=== PATIENT | male | born 1935 | race Caucasian/White ===

== ENCOUNTER 2023-09-17 19:39 | Inpatient (IN) | payer MEDICARE, BC, SELFPAY ==
[2023-09-17] VITALS (8 sets, daily range): BP systolic 132–195; BP diastolic 61–88; PULSE 86–100; RESP 16–18; TEMP 36.8–37.1; O2SAT 92–99; BMI 24.6
--- NOTE | 2023-09-17 19:57 | DI.RAD.S_ITS ---
PROCEDURE: XR HIP W PEL IF DONE LT 2V INDICATIONS: slip in shower, L hip pain TECHNIQUE: AP pelvis with lateral view(s) of the left hip(s). COMPARISON: None. FINDINGS: Bones: Left hip appears foreshortened. There is subtle irregularity at the intertrochanteric femoral neck. No dislocations. Pelvic ring appears intact. No suspicious bony lesions. Soft tissues: The visualized bowel gas pattern is normal. No suspicious soft tissue calcifications. IMPRESSION: Suspect left hip fracture. Foreshortened appearance with irregularity at the intertrochanteric femoral neck. Dictated by: Fabrizio Maravilla M.D. on 09/17/2023 at 20:54 Approved by: Fabrizio Maravilla M.D. on 09/17/2023 at 20:57
--- NOTE | 2023-09-17 20:00 | DI.RAD.S_ITS ---
PROCEDURE: XR CHEST 1V INDICATIONS: pre-op TECHNIQUE: One view of the chest was acquired. COMPARISON: None. FINDINGS: Surgical changes and devices: None. Lungs and pleura: Lungs are clear. No pleural effusions or pneumothorax. Mediastinum: Mediastinal contours appear normal. Heart size is normal. Bones and chest wall: No suspicious bony lesions. Overlying soft tissues appear unremarkable. IMPRESSION: No acute cardiopulmonary abnormality is seen. Dictated by: Fabrizio Maravilla M.D. on 09/17/2023 at 20:57 Approved by: Fabrizio Maravilla M.D. on 09/17/2023 at 20:58
--- NOTE | 2023-09-17 20:27 | ED.LOWEXIN ---
HPI - Extremity Injury (Lower) General Chief Complaint: Extremity Injury, Upper Stated Complaint: lt hip Fx issues Time Seen by Provider: 09/17/23 19:57 Source: patient Mode of arrival: Wheelchair History of Present Illness HPI Narrative: 88-year-old male presents with left hip pain. Patient was in the shower when he slipped, landing on his left hip. He denies any other injuries at this time. Takes 2 daily baby aspirins, denies use of other blood thinners. Able to bear a very small amount of weight on his left hip, but unable to ambulate due to pain Related Data Home Medications Medication Instructions Recorded Confirmed aspirin 81 mg tablet 81 mg PO BID 09/17/23 09/17/23 atorvastatin 20 mg tablet 20 mg PO BEDTIME 09/17/23 09/17/23 cyanocobalamin (vitamin B-12) 5,000 mcg PO DAILY 09/17/23 09/17/23 5,000 mcg sublingual tablet (Vitamin B-12) gabapentin 100 mg capsule 100 mg PO QID 09/17/23 09/17/23 hydrochlorothiazide 12.5 mg capsule 12.5 mg PO QAM 09/17/23 09/17/23 multivit with minerals-iron 18 1 tab PO DAILY 09/17/23 09/17/23 mg-folic ac 400 mcg-vit K 25 mcg tablet (Adults Multivitamin) Allergies Allergy/AdvReac Type Severity Reaction Status Date / Time No Known Drug Allergies Allergy Verified 09/17/23 19:52 Patient History Medical History (Updated 09/18/23 @ 02:46 by Audelia Starkey MD) TIA (transient ischemic attack) HLD (hyperlipidemia) HTN (hypertension) Nephrolithiasis Surgical History H/O Spinal surgery H/O cystoscopy Hx of inguinal hernia surgery Social History household members: spouse Smoking Status: Never smoker alcohol intake: current Exam Initial Vital Signs Initial Vital Signs: Vital Signs Temperature 98.3 F 09/17/23 19:48 Pulse Rate 95 H 09/17/23 19:48 Respiratory Rate 18 09/17/23 19:48 Blood Pressure 158/73 H 09/17/23 19:48 Pulse Oximetry 98 09/17/23 19:48 Oxygen Delivery Method Room Air 09/17/23 19:48 Const: Awake, alert, no acute distress, nontoxic appearing Cardiac: regular rate, regular rhythm RESP: unlabored, clear bilaterally, no wheezing GI: Soft, nontender, nondistended MSK: No reproducible tenderness to palpation, pain with range of motion, no shortening Skin: Warm, Dry, intact, no rashes Neuro: AO x3, CN II-XII grossly intact, moves all extremities Course Orders Ordered: ED Orders 09/17/23 19:57 XR hip w pel if done LT 2V Stat 09/17/23 20:00 XR chest 1V Stat 09/17/23 20:15 PT [Prothrombin Time INR] Stat 09/17/23 20:19 CBC Auto Diff [Complete Blood Count AUTO DIFF] Stat CMP [Comprehensive Metabolic Panel] Stat 09/17/23 21:02 CT pelvis wo con Stat EKG-12 Lead Stat 09/17/23 21:20 Type and Screen Stat 09/17/23 21:46 Consult to Orthopedic Surgery Stat Acetaminophen (Acetaminophen 325 Mg Tablet) 650 mg PO TID [facility] Last Admin: 09/17/23 23:02 Dose: 650 mg Documented By: RETA Atorvastatin Calcium (Atorvastatin 20 Mg Tablet) 20 mg PO BEDTIME [facility] Bisacodyl (Bisacodyl 10 Mg Supp) 10 mg HI DAILY PRN PRN Reason: Constipation Docusate Sodium (Docusate 100 Mg Capsule) 100 mg PO BID СЕРГЕЙ Gabapentin (Gabapentin 100 Mg Capsule) 100 mg PO QID [facility] Last Admin: 09/17/23 23:02 Dose: 100 mg Documented By: RETA Gabapentin (Gabapentin 100 Mg Capsule) 100 mg PO QID [facility] Hydromorphone HCl (Hydromorphone 0.5 Mg Inj) 0.5 mg IV Q4H PRN PRN Reason: Pain, Severe (7-10) Lactated Ringer's (Lactated Ringers) 1,000 mls @ 100 mls/hr IV CONT [facility] Stop: 09/18/23 07:59 Last Admin: 09/17/23 22:42 Dose: 100 mls/hr Documented By: RETA Naloxone HCl (Naloxone 0.4 Mg/Ml Vial) 0.2 mg IV Q2MIN PRN PRN Reason: Opiate Reversal Ondansetron HCl (Ondansetron 4 Mg/2 Ml Inj) 4 mg IV Q8HR PRN PRN Reason: Nausea And Vomiting Ondansetron HCl (Ondansetron 4 Mg Odt) 4 mg PO Q8HR PRN PRN Reason: Nausea And Vomiting Oxycodone HCl (Oxycodone Ir 5 Mg Tablet) 5 mg PO Q4HR PRN PRN Reason: Pain, Moderate (4-6) Sennosides (Sennosides 8.6 Mg Tablet) 17.2 mg PO BEDTIME СЕРГЕЙ Discontinued Medications Morphine Sulfate (Morphine 4 Mg/Ml Inj) 4 mg IV NOW ONE Stop: 09/17/23 20:29 Last Admin: 09/17/23 20:42 Dose: 4 mg Documented By: DELON Vital Signs Vital signs: Vital Signs - 8 hr 09/17/23 19:48 09/17/23 19:58 09/17/23 19:58 Temperature 98.3 F Pulse Rate 95 H 96 H Respiratory Rate 18 16 Blood Pressure 158/73 H 195/88 H Pulse Oximetry 98 97 Oxygen Delivery Method Room Air Room Air 09/17/23 20:00 09/17/23 20:00 09/17/23 20:22 Temperature Pulse Rate 100 H 93 H Respiratory Rate Blood Pressure 182/72 H Pulse Oximetry 99 97 Oxygen Delivery Method 09/17/23 20:22 09/17/23 20:30 09/17/23 20:30 Temperature Pulse Rate 93 H Respiratory Rate Blood Pressure 150/70 H 149/72 H Pulse Oximetry 97 Oxygen Delivery Method 09/17/23 21:00 09/17/23 21:00 09/17/23 21:22 Temperature Pulse Rate 93 H 86 Respiratory Rate Blood Pressure 146/67 H Pulse Oximetry 92 96 Oxygen Delivery Method Room Air 09/17/23 21:22 Temperature Pulse Rate Respiratory Rate Blood Pressure 132/61 Pulse Oximetry Oxygen Delivery Method MDM - Extremity Injury (Lower) Differential Diagnosis Differential diagnosis: Likely acute internal derangement of knee, fracture of femur and fracture of hip Lab Data 09/17/23 20:19 09/17/23 20:19 Labs: Lab Results 09/17/23 09/17/23 09/17/23 Range/Units 20:15 20:19 21:20 WBC 10.9 (4.5-11.0) X10^3/uL RBC 4.16 L (4.5-5.9) X10^6/uL Hgb 14.2 (13.5-17.5) g/dL Hct 41.1 (41-53) % MCV 98.6 (80-100) fL MCH 34.1 H (26-34) PG MCHC 34.6 (30-36) % RDW 13.1 (11.6-14.8) % Plt Count 169 (150-400) X10^3/uL Neut % (Auto) 73.5 (50-75) % Lymph % (Auto) 16.2 L (25-40) % Ross % (Auto) 9.3 (3-14) % Eos % (Auto) 0.5 L (2-4) % Baso % (Auto) 0.5 (0-2) % Neut # (Auto) 8000 H (8710-5377) /uL Lymph # (Auto) 1800 (6458-2496) /uL Ross # (Auto) 1000 H (0-900) /uL Eos # (Auto) 100 (0-450) /uL Baso # (Auto) 100 (0-100) /uL PT 11.8 (9.4-12.5) SECONDS INR 1.0 (0.9-1.3) Sodium 130 L (137-145) mmol/L Potassium 3.8 (3.4-5.1) mmol/L Chloride 98 (98-107) mmol/L Carbon Dioxide 24 (22-32) mmol/L BUN 27 H (9-20) mg/dL Creatinine 0.99 (0.66-1.25) mg/dL Estimated GFR > 60 (>60) mL/min BUN/Creatinine Ratio 27.3 H (6-22) Glucose 149 H (80-110) mg/dL Calcium 10.7 H (8.4-10.2) mg/dL Total Bilirubin 0.9 (0.2-1.3) mg/dL AST 39 (17-59) IU/L ALT 26 (<50) IU/L Alkaline Phosphatase 71 (38-126) U/L Total Protein 7.2 (6.3-8.2) g/dL Albumin 4.0 (3.5-5.0) g/dL Globulin 3.2 (1.7-4.1) g/dL Albumin/Globulin Ratio 1.3 (1.0-2.8) Blood Type A Positive Antibody Screen Negative Imaging Data CT scan - abdomen/pelvis: Radiologist's Impression: PROCEDURE: CT PEL WO CON INDICATIONS: PROBABLE L HIP FX, BETTER ASSESSMENT TECHNIQUE: After the administration of oral contrast, 5 mm thick sections acquired from the iliac crests to the symphysis. 5 mm coronal and sagittal reformats were then performed. For radiation dose reduction, the following was used: automated exposure control, adjustment of mA and/or kV according to patient size. COMPARISON: [facility], CR, XR HIP W PEL IF DONE LT 2V, 09/17/2023, 20:02. FINDINGS: Image quality: Diagnostic. PELVIS: Peritoneum and Bowel: Bowel loops demonstrate normal wall thickness and caliber. No free fluid or air. Pelvic Organs: No pelvic mass. Bladder: Small stone in the right bladder measuring 0.5 cm, (2/37). Pelvic Nodes: No enlarged lymph nodes. Miscellaneous: No inguinal hernias are seen. Small low-density renal cysts. Small nonobstructing right kidney stones. No hydroureter seen. Bones: No aggressive osseous abnormality. Left hip intertrochanteric fracture. Minimal displacement. L3 Schmorl's node or mild compression fracture. Multilevel DDD. IMPRESSION: 1. Left hip intertrochanteric fracture. 2. Small stone in the urinary bladder. No hydroureter is seen. Small additional kidney stones. Dictated by: Fabrizio Maravilla M.D. on 09/17/2023 at 22:09 Approved by: Fabrizio Maravilla M.D. on 09/17/2023 at 22:16 MDM Narrative Medical decision making narrative: Ground level fall with hip pain, suspect fracture. While laying in bed patient's pain relatively well controlled. X-ray shows suspected left hip fracture. CT ordered for further assessment and if ortho needs for preop planning. Laboratory work reviewed, no significant abnormalities identified. Patient informed of diagnosis and recommended admission for surgical fixation. Patient in agreement Discharge Plan Departure Patient Disposition: Admitted As Inpatient Clinical Impression: Fall in (into) shower or empty bathtub, initial encounter, Injury while showering Fracture of hip, left, closed Qualifiers: Encounter type: initial encounter Qualified Code(s): S72.002A - Fracture of unspecified part of neck of left femur, initial encounter for closed fracture Admit Date/Time: 09/17/23 21:46 Admit Provider: Yi Asencio
[2023-09-17] MEDS: MORPHINE 4 MG/ML INJ IV (20:42)
[2023-09-17 20:43] LABS: Alanine Aminotransferase 26 IU/L (<50); Albumin Globulin Ratio 1.3 (1.0-2.8); Alkaline Phosphatase 71 U/L (38-126); Aspartate Aminotransferase 39 IU/L (17-59); BUN Creatinine Ratio 27.3 (6-22); Bilirubin Total 0.9 mg/dL (0.2-1.3); Blood Urea Nitrogen 27 mg/dL (9-20); Calcium 10.7 mg/dL (8.4-10.2); Carbon Dioxide 24 mmol/L (22-32); Chloride 98 mmol/L (98-107); Estimated Glomerular Filt Rate > 60 mL/min (>60); Globulin 3.2 g/dL (1.7-4.1); Glucose 149 mg/dL (80-110); HEMOLYSIS 33 (0-50); Potassium 3.8 mmol/L (3.4-5.1); Sodium 130 mmol/L (137-145); Total Protein 7.2 g/dL (6.3-8.2)
[2023-09-17 20:45] LABS: Add Manual Diff / Slide Review NO; Basophils Absolute Auto 100 /uL (0-100); Basophils Percent Auto 0.5 % (0-2); Eosinophils Absolute Auto 100 /uL (0-450); Eosinophils Percent Auto 0.5 % (2-4); Hematocrit 41.1 % (41-53); Hemoglobin 14.2 g/dL (13.5-17.5); Lymphocytes Absolute Auto 1800 /uL (1100-4500); Lymphocytes Percent Auto 16.2 % (25-40); Mean Corpuscular HGB Conc 34.6 % (30-36); Mean Corpuscular Hemoglobin 34.1 PG (26-34); Mean Corpuscular Volume 98.6 fL (80-100); Monocytes Absolute Auto 1000 /uL (0-900); Monocytes Percent Auto 9.3 % (3-14); Neutrophils Absolute Auto 8000 /uL (1500-7000); Neutrophils Percent Auto 73.5 % (50-75); Platelet Count 169 X10^3/uL (150-400); Red Blood Cell Count 4.16 X10^6/uL (4.5-5.9); Red Cell Distribution Width 13.1 % (11.6-14.8); White Blood Cell Count 10.9 X10^3/uL (4.5-11.0)
--- NOTE | 2023-09-17 21:02 | DI.CT.S_ITS ---
PROCEDURE: CT PEL WO CON INDICATIONS: PROBABLE L HIP FX, BETTER ASSESSMENT TECHNIQUE: After the administration of oral contrast, 5 mm thick sections acquired from the iliac crests to the symphysis. 5 mm coronal and sagittal reformats were then performed. For radiation dose reduction, the following was used: automated exposure control, adjustment of mA and/or kV according to patient size. COMPARISON: [facility], CR, XR HIP W PEL IF DONE LT 2V, 09/17/2023, 20:02. FINDINGS: Image quality: Diagnostic. PELVIS: Peritoneum and Bowel: Bowel loops demonstrate normal wall thickness and caliber. No free fluid or air. Pelvic Organs: No pelvic mass. Bladder: Small stone in the right bladder measuring 0.5 cm, (2/37). Pelvic Nodes: No enlarged lymph nodes. Miscellaneous: No inguinal hernias are seen. Small low-density renal cysts. Small nonobstructing right kidney stones. No hydroureter seen. Bones: No aggressive osseous abnormality. Left hip intertrochanteric fracture. Minimal displacement. L3 Schmorl's node or mild compression fracture. Multilevel DDD. IMPRESSION: 1. Left hip intertrochanteric fracture. 2. Small stone in the urinary bladder. No hydroureter is seen. Small additional kidney stones. Dictated by: Fabrizio Maravilla M.D. on 09/17/2023 at 22:09 Approved by: Fabrizio Maravilla M.D. on 09/17/2023 at 22:16
--- NOTE | 2023-09-17 21:02 | EKG_ITS ---
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
[2023-09-17 21:17] LABS: Prothrombin Time 11.8 SECONDS (9.4-12.5)
--- NOTE | 2023-09-17 21:31 | PC.NURSE ---
type and screen drawn, blood band placed
--- NOTE | 2023-09-17 22:11 | P.HP_ITS ---
History of Present Illness History of Present Illness Date Patient Seen: 09/17/23 Time Patient Seen: 23:00 Date of Onset of Symptoms: 09/17/23 Chief complaint: Left hip pain, fall Narrative: Discussed admission with Dr. Starkey States that he traveled from [facility] to [facility], due to water issues at location went to [place] to shower and slipped on soap falling on Left hip at 14.30. He was down for about 30 mins, was assisted up as not able to bear weight, and [place] to [place]. Prior to fall was at baseline health. Denies head trauma or other injury. Denies any other complaints. Desires to discuss surgical options with Surgeon; prefers to be at large facility and would like to considering transfer options with Hospitalist in am. ED course: 4mg IV x1 ED consulted zoning assistant Orthopedic surgeon [facility] Medical History TIA (transient ischemic attack) HLD (hyperlipidemia) HTN (hypertension) Nephrolithiasis Surgical History H/O Spinal surgery H/O cystoscopy Hx of inguinal hernia surgery Meds Home Medications and Allergies Home Medications Medication Instructions Recorded Confirmed Type aspirin 81 mg tablet 81 mg PO BID 09/17/23 09/17/23 History atorvastatin 20 mg tablet 20 mg PO BEDTIME 09/17/23 09/17/23 History cyanocobalamin (vitamin B-12) 5,000 mcg PO DAILY 09/17/23 09/17/23 History 5,000 mcg sublingual tablet (Vitamin B-12) gabapentin 100 mg capsule 100 mg PO QID 09/17/23 09/17/23 History hydrochlorothiazide 12.5 mg capsule 12.5 mg PO QAM 09/17/23 09/17/23 History multivit with minerals-iron 18 1 tab PO DAILY 09/17/23 09/17/23 History mg-folic ac 400 mcg-vit K 25 mcg tablet (Adults Multivitamin) Allergies Allergy/AdvReac Type Severity Reaction Status Date / Time No Known Drug Allergies Allergy Verified 09/17/23 19:52 Review of Systems Review of Systems ROS: Yes All systems reviewed with the patient and are negative except as otherwise documented Exam Vital Signs (past 8 hours): - 09/17/23 19:48 09/17/23 19:58 09/17/23 19:58 Temperature 98.3 F Pulse Rate 95 H 96 H Respiratory Rate 18 16 Blood Pressure 158/73 H 195/88 H Pulse Oximetry 98 97 Oxygen Delivery Method Room Air Room Air 09/17/23 20:00 09/17/23 20:00 09/17/23 20:22 Temperature Pulse Rate 100 H 93 H Respiratory Rate Blood Pressure 182/72 H Pulse Oximetry 99 97 Oxygen Delivery Method 09/17/23 20:22 09/17/23 20:30 09/17/23 20:30 Temperature Pulse Rate 93 H Respiratory Rate Blood Pressure 150/70 H 149/72 H Pulse Oximetry 97 Oxygen Delivery Method 09/17/23 21:00 09/17/23 21:00 09/17/23 21:22 Temperature Pulse Rate 93 H 86 Respiratory Rate Blood Pressure 146/67 H Pulse Oximetry 92 96 Oxygen Delivery Method Room Air 09/17/23 21:22 Temperature Pulse Rate Respiratory Rate Blood Pressure 132/61 Pulse Oximetry Oxygen Delivery Method Oxygen Delivery Method Room Air Narrative Exam Narrative: Patient consented and evaluated via telemedicine with audio and visual with nurse at bedside. Const General: healthy appearing Orientation: alert and oriented x3 Other: NAD HENMT Head: normocephalic Mouth: oral mucosae normal Eyes General: appearance normal, both eyes and all related structures EOM: EOM intact bilaterally Neck Neck: normal visual inspection Chest Chest: normal inspection of the chest Resp Effort & Inspection: normal respiratory effort Cardio Rate: regular rate Rhythm: regular rhythm GI Inspection: normal to inspection Auscultation: normal bowel sounds Other: NTTP Skin General: no rashes or lesions noted Neuro General: patient alert and patient oriented x3 Extrem Other: LLE limited ROM due to pain Psych Affect: normal affect Objective ECG Impression: NSR, no significant contiguous ST changes, no previous to compare Imaging XR Left Hip: My impression: Left femoral neck intertrochanteric fracture Radiologist's impression: PROCEDURE: XR HIP W PEL IF DONE LT 2V INDICATIONS: slip in shower, L hip pain TECHNIQUE: AP pelvis with lateral view(s) of the left hip(s). COMPARISON: None. FINDINGS: Bones: Left hip appears foreshortened. There is subtle irregularity at the intertrochanteric femoral neck. No dislocations. Pelvic ring appears intact. No suspicious bony lesions. Soft tissues: The visualized bowel gas pattern is normal. No suspicious soft tissue calcifications. IMPRESSION: Suspect left hip fracture. Foreshortened appearance with irregularity at the intertrochanteric femoral neck. Dictated by: Fabrizio Maravilla M.D. on 09/17/2023 at 20:54 Approved by: Fabrizio Maravilla M.D. on 09/17/2023 at 20:57 CT scan - pelvis: My impression: Left femoral neck intertrochanteric fracture Radiologist's impression: [address] [id number] [address] Scan Report Signed Patient: Jackson Cutler MR#: [id number] : 1935 Acct:[id number] Age/Sex: 88 / M Date of Service: 09/17/23 Loc: 205-1 Accession Number: [id number] Procedure: CT pelvis wo con Ordering Provider: Audelia Starkey MD PROCEDURE: CT PEL WO CON INDICATIONS: PROBABLE L HIP FX, BETTER ASSESSMENT TECHNIQUE: After the administration of oral contrast, 5 mm thick sections acquired from the iliac crests to the symphysis. 5 mm coronal and sagittal reformats were then performed. For radiation dose reduction, the following was used: automated exposure control, adjustment of mA and/or kV according to patient size. COMPARISON: [facility], CR, XR HIP W PEL IF DONE LT 2V, 09/17/2023, 20:02. FINDINGS: Image quality: Diagnostic. PELVIS: Peritoneum and Bowel: Bowel loops demonstrate normal wall thickness and caliber. No free fluid or air. Pelvic Organs: No pelvic mass. Bladder: Small stone in the right bladder measuring 0.5 cm, (2/37). Pelvic Nodes: No enlarged lymph nodes. Miscellaneous: No inguinal hernias are seen. Small low-density renal cysts. Small nonobstructing right kidney stones. No hydroureter seen. Bones: No aggressive osseous abnormality. Left hip intertrochanteric fracture. Minimal displacement. L3 Schmorl's node or mild compression fracture. Multilevel DDD. IMPRESSION: 1. Left hip intertrochanteric fracture. 2. Small stone in the urinary bladder. No hydroureter is seen. Small additional kidney stones. Dictated by: Fabrizio Maravilla M.D. on 09/17/2023 at 22:09 Approved by: Fabrizio Maravilla M.D. on 09/17/2023 at 22:16 Chest x-ray: My impression: NAP Radiologist's impression: PROCEDURE: XR CHEST 1V INDICATIONS: pre-op TECHNIQUE: One view of the chest was acquired. COMPARISON: None. FINDINGS: Surgical changes and devices: None. Lungs and pleura: Lungs are clear. No pleural effusions or pneumothorax. Mediastinum: Mediastinal contours appear normal. Heart size is normal. Bones and chest wall: No suspicious bony lesions. Overlying soft tissues appear unremarkable. IMPRESSION: No acute cardiopulmonary abnormality is seen. Dictated by: Fabrizio Maravilla M.D. on 09/17/2023 at 20:57 Approved by: Fabrizio Maravilla M.D. on 09/17/2023 at 20:58 Labs 09/17/23 20:19 09/17/23 20:19 Labs: Laboratory Results - last 24 hr 09/17/23 09/17/23 20:15 20:19 WBC 10.9 RBC 4.16 L Hgb 14.2 Hct 41.1 MCV 98.6 MCH 34.1 H MCHC 34.6 RDW 13.1 Plt Count 169 Neut % (Auto) 73.5 Lymph % (Auto) 16.2 L Wilson % (Auto) 9.3 Eos % (Auto) 0.5 L Baso % (Auto) 0.5 Neut # (Auto) 8000 H Lymph # (Auto) 1800 Wilson # (Auto) 1000 H Eos # (Auto) 100 Baso # (Auto) 100 PT 11.8 INR 1.0 Sodium 130 L Potassium 3.8 Chloride 98 Carbon Dioxide 24 BUN 27 H Creatinine 0.99 Estimated GFR > 60 BUN/Creatinine Ratio 27.3 H Glucose 149 H Calcium 10.7 H Total Bilirubin 0.9 AST 39 ALT 26 Alkaline Phosphatase 71 Total Protein 7.2 Albumin 4.0 Globulin 3.2 Albumin/Globulin Ratio 1.3 Assessment & Plan Assessment and plan (1) Fracture of hip, left, closed: Problem details: Traumatic Qualifiers: Encounter type: initial encounter Qualified Code(s): S72.002A - Fracture of unspecified part of neck of left femur, initial encounter for closed fracture Status: Acute Plan: XR, CT with acute fracture order caller Orthopedic surgeon consulted by ED, plan admit to medicine, will discuss with oncoming team in am for scheduling of surgical intervention 09/17 Pain management with bowel regimen Surgical cardiac risk without risk factors, RCRI Class 1 3.9%, no further work up indicated INR 1 Type and cross pending DNR/DNI would like to discuss operative Code status with surgeon PT/OT NPO p MN (2) Hyponatremia: Status: Acute Plan: Mild, suspect hypovolemic, start IV fluids with LR, serial monitoring (3) Nephrolithiasis: Status: Acute Plan: Nephrolithiasis and urinary calculi on CT without obstructive process Follow up with PCP Assessment & Plan narrative: Chronic conditions: HTN, hold HCTZ 12.5mg (unsure of dose) for fluid administration as above, pain management and if BP uncontrolled, 180/110 will initiate prn HLD, continue home statin therapy atorvastatin 20mg History of TIA 2005, hold home antiplatelet ASA 81mg BID History of Spinal surgery with neuropathy, continue home Gabapentin History of bilateral inguinal hernia surgery Time-Based Coding :: [TOTAL MINUTES] spent with patient and on the chart (including review of chart, obtaining history, exam, reviewing outside data, placing orders, documenting exam and treatment plan, and counseling patient) on [DATE].
[2023-09-17] MEDS: LACTATED RINGERS 1,000 ML 100 ML IV (22:42)
[2023-09-17] MEDS: GABAPENTIN 100 MG CAPSULE PO (23:02)
[2023-09-17] MEDS: ACETAMINOPHEN 325 MG TABLET 650 MG PO (23:02)
[2023-09-18] VITALS (21 sets, daily range): BP systolic 118–189; BP diastolic 63–91; PULSE 84–110; RESP 8–17; TEMP 36.2–37.1; O2SAT 90–100; BMI 26.2
[2023-09-18 06:47] LABS: Add Manual Diff / Slide Review NO; Basophils Absolute Auto 0 /uL (0-100); Basophils Percent Auto 0.6 % (0-2); Eosinophils Absolute Auto 200 /uL (0-450); Hematocrit 40.7 % (41-53); Hemoglobin 13.9 g/dL (13.5-17.5); Lymphocytes Absolute Auto 1400 /uL (1100-4500); Lymphocytes Percent Auto 17.1 % (25-40); Mean Corpuscular HGB Conc 34.2 % (30-36); Mean Corpuscular Hemoglobin 33.6 PG (26-34); Mean Corpuscular Volume 98.5 fL (80-100); Monocytes Absolute Auto 1000 /uL (0-900); Monocytes Percent Auto 12.7 % (3-14); Neutrophils Absolute Auto 5400 /uL (1500-7000); Neutrophils Percent Auto 67.6 % (50-75); Platelet Count 164 X10^3/uL (150-400); Red Blood Cell Count 4.14 X10^6/uL (4.5-5.9); Red Cell Distribution Width 13.3 % (11.6-14.8); White Blood Cell Count 7.9 X10^3/uL (4.5-11.0)
[2023-09-18 07:06] LABS: BUN Creatinine Ratio 22.4 (6-22); Blood Urea Nitrogen 19 mg/dL (9-20); Calcium 10.1 mg/dL (8.4-10.2); Carbon Dioxide 24 mmol/L (22-32); Chloride 98 mmol/L (98-107); Estimated Glomerular Filt Rate > 60 mL/min (>60); Glucose 95 mg/dL (80-110); HEMOLYSIS < 15 (0-50); Potassium 3.6 mmol/L (3.4-5.1); Sodium 131 mmol/L (137-145)
--- NOTE | 2023-09-18 07:25 | PT-IP ANOTE ---
PT order received. Pt adm after fall and left hip fracture. No surgery done at this point. Will d/c PT order and await new orders post-op to include any precautions and WB.
--- NOTE | 2023-09-18 07:29 | PM.PN.1 ---
Subjective Subjective Interval history: From night doctor: States that he traveled from [facility] to [facility], due to water issues at location went to [place] to shower and slipped on soap falling on Left hip at 14.30. He was down for about 30 mins, was assisted up as not able to bear weight, and transported on ferry to [place]. Prior to fall was at baseline health. Denies head trauma or other injury. Denies any other complaints. Desires to discuss surgical options with Surgeon; prefers to be at large facility and would like to considering transfer options with Hospitalist in am. ED course: 4mg IV x1 ED consulted land acquisition analyst Orthopedic surgeon S: Doing well, the pain is manageable. No chest pain or dyspnea. He does have aortic stenosis. Exam Vital Signs (past 8 hours): - 09/18/23 03:19 Temperature 98.5 F Pulse Rate 86 Respiratory Rate 14 Blood Pressure 143/69 H Pulse Oximetry 96 Oxygen Flow Rate 0 Oxygen Delivery Method Room Air Oxygen Flow Rate 0 Narrative Exam Narrative: NAD, alert and oriented. Fluent speech. Lungs are clear, normal rate and effort. Heart is regular, 3/6 systolic murmur and no gallop or rub. Abdomen is soft, non distended. Extremities are free of edema. Objective Imaging L Hip X-ray:: Radiologist's impression: Suspect left hip fracture. Foreshortened appearance with irregularity at the intertrochanteric femoral neck. L hip CT: : Radiologist's impression: 1. Left hip intertrochanteric fracture. 2. Small stone in the urinary bladder. No hydroureter is seen. Small additional kidney stones. Labs 09/18/23 06:35 09/18/23 06:35 Labs: Laboratory Results - last 24 hr 09/17/23 09/17/23 09/17/23 20:15 20:19 21:20 WBC 10.9 RBC 4.16 L Hgb 14.2 Hct 41.1 MCV 98.6 MCH 34.1 H MCHC 34.6 RDW 13.1 Plt Count 169 Neut % (Auto) 73.5 Lymph % (Auto) 16.2 L Camden % (Auto) 9.3 Eos % (Auto) 0.5 L Baso % (Auto) 0.5 Neut # (Auto) 8000 H Lymph # (Auto) 1800 Camden # (Auto) 1000 H Eos # (Auto) 100 Baso # (Auto) 100 PT 11.8 INR 1.0 Sodium 130 L Potassium 3.8 Chloride 98 Carbon Dioxide 24 BUN 27 H Creatinine 0.99 Estimated GFR > 60 BUN/Creatinine Ratio 27.3 H Glucose 149 H Calcium 10.7 H Total Bilirubin 0.9 AST 39 ALT 26 Alkaline Phosphatase 71 Total Protein 7.2 Albumin 4.0 Globulin 3.2 Albumin/Globulin Ratio 1.3 Blood Type A Positive Antibody Screen Negative 09/18/23 06:35 WBC 7.9 RBC 4.14 L Hgb 13.9 Hct 40.7 L MCV 98.5 MCH 33.6 MCHC 34.2 RDW 13.3 Plt Count 164 Neut % (Auto) 67.6 Lymph % (Auto) 17.1 L Camden % (Auto) 12.7 Eos % (Auto) 2.0 Baso % (Auto) 0.6 Neut # (Auto) 5400 Lymph # (Auto) 1400 Camden # (Auto) 1000 H Eos # (Auto) 200 Baso # (Auto) 0 PT INR Sodium 131 L Potassium 3.6 Chloride 98 Carbon Dioxide 24 BUN 19 Creatinine 0.85 Estimated GFR > 60 BUN/Creatinine Ratio 22.4 H Glucose 95 Calcium 10.1 Total Bilirubin AST ALT Alkaline Phosphatase Total Protein Albumin Globulin Albumin/Globulin Ratio Blood Type Antibody Screen [facility] Medical History TIA (transient ischemic attack) HLD (hyperlipidemia) HTN (hypertension) Nephrolithiasis Surgical History H/O Spinal surgery H/O cystoscopy Hx of inguinal hernia surgery Social History household members: spouse Smoking Status: Never smoker alcohol intake: current Assessment & Plan Assessment & Plan narrative: 1. Left hip intertrochanteric fracture, present on admission and active. 2. Hyponatremia, present on admission and active. 3. Nephrolithiasis, present on admission and active. 4. Moderate Aortic stenosis, present on admission and active. Chronic medical conditions: HTN, hold HCTZ 12.5mg (unsure of dose) for fluid administration as above, pain management and if BP uncontrolled, 180/110 will initiate prn HLD, continue home statin therapy atorvastatin 20mg History of TIA 2005, hold home antiplatelet ASA 81mg BID History of Spinal surgery with neuropathy, continue home Gabapentin History of bilateral inguinal hernia surgery PLAN: -operative repair hip fracture today. -aortic stenosis, monitor carefully. Admitted to inpatient status, expected 2 nights stay. Full resuscitation. Time-Based Coding :: 30 min spent with patient and on the chart (including review of chart, obtaining history, exam, reviewing outside data, placing orders, documenting exam and treatment plan, and counseling patient) on 09/17.
--- NOTE | 2023-09-18 08:07 | OT.IPNOTE ---
OT eval and treat order received. Chart reviewed, pt with fall and L hip fx. Awaiting sx vs transfer to another hospital per chart. Will discharge order at this time and await new order after sx.
[2023-09-18] MEDS: ACETAMINOPHEN 325 MG TABLET 650 MG PO (08:41)
[2023-09-18] MEDS: DOCUSATE 100 MG CAPSULE PO ×2 (08:41→20:08)
[2023-09-18] MEDS: GABAPENTIN 100 MG CAPSULE PO ×2 (08:41→20:08)
[2023-09-18] MEDS: LACTATED RINGERS 1,000 ML 84 ML IV ×2 (08:58→16:33)
[2023-09-18] MEDS: OXYCODONE IR 5 MG TABLET PO (09:03)
--- NOTE | 2023-09-18 11:49 | CM.DANOTE ---
Patient is an 88 yo male who was admitted INPT Status on 09/17/23 for GLF with L hip Fx. Pt has Marana MCR ADV for insurance and his PCP is in [place]. EMR was reviewed. Per , pt with GLF and left hip fx and hypercalcemia and awaiting Ortho Consult to confirm surgery today. Per Rn, pt on the Ortho surgery schedule for 1500 today. SW met bedside with pt and spouse Tatiana and explained role and they confirm their permanent address is in [place] but for the past 30 yrs they come to their summer home on [facility] and stay for a few months in the summer. Pt confirms that he is typically independent with mobility and ADLS and still drives and is very A&O. Pt states that his has early Alzheimers and is getting bi monthly infusions for medications for that in [place] and their next trip back to [place] is already set up for Oct 07 at the end of the month and spouse typically able to manage most of her ADLs still but has been a little more confused in this new environment. Pt has no hx of SNF or HH and discussed the process of PT/OT in the morning after his later afternoon surgery today to determine HH vs SNF. Pt confirms that they do not plan to d/c back to [facility] right at d/c and would be local hotel together if safe for d/c with HH vs SNF and spouse staying at hotel nearby. Preference if SNF needed is [facility] due to location. SW made new referral to [facility] and requested they review and determine if they can take pt's Marana MCR otherwise pt aware that SW would need to reach out to [facility] and Sandra Fraser in [facility]. Plan: SW to follow closely for [facility] review of pt's insurance and then PT/OT eval tomorrow to determine discharge planning needs of SNF vs local hotel with HH. NIKA Murguia Discharge Planning/Care Management Advanced directive, confirm from FAMILY Start: 09/17/23 22:48 Freq: Q24H Status: Active Protocol: Document 09/17/23 22:48 BR (Rec: 09/17/23 23:30 BR [id number]) Advance Directive, confirm on record Time 23:30 Person contacted spouse Copy received No CM Discharge Assessment Start: 09/18/23 11:45 Freq: Status: Active Protocol: Document 09/18/23 11:45 BF (Rec: 09/18/23 11:49 BF [id number]) Discharge Planning Assessment Assigned Chief Medical Technologist NIKA Stevens DPOA/Assigned Designee Name spouse Tatiana Contact Information [phone] Advance Directives? Yes: copies at home in [place] Advance Directives on File No History Provided By Patient,Significant Other, Medical Record Has Patient been admitted in last 30 No days? Prior Living Arrangements House Comment has stairs at home on [place], none at home in [place] Household Members spouse Type of transporation used prior to Drives own vehicle admit Independent with ADL's Yes Is patient alert and oriented? Yes Caregiver for Another Yes: spouse with early Alzeheimers Patient/Family Preference Shelter Facility,Home with Home Health Comment SNF vs HH pending surgery and then PT/OT eval Barriers to Discharge No Discharge Plan Shelter Facility Community Services Physical Therapy,Occupational Therapy Transportation Arrangement spouse able to transport locally Referrals Initiated Shelter,Home Health Additional Comment Pending surgery and then PT/OT eval and recommendations Medicare Choice List Provided Yes Medicare choice list reviewed on patient,family electronic tablet with Has Agency SNF been contacted Yes Comment [facility] reviewing to see if contracted with Justin Merrill Updated in Patient Room with Yes name and ext. # of Chief Medical Technologist Review Status In Process Please Provide Date Initial DC 09/18/23 Assessment Was Performed Next Review Type Continued Stay Review
--- NOTE | 2023-09-18 14:26 | P.CONS_ITS ---
History of Present Illness Consult details Date Patient Seen: 09/18/23 Time Patient Seen: 14:27 Chief complaint: Left hip pain, fall Reason for consult: Hip fracture, left Requesting provider: Mina Nunn Narrative: The patient is an 88-year-old male that is visiting from [place]. Typically spends the adam up on [facility]. This year they were to only spent the month of September. They just arrived and found something wrong with the plugging of the cabin [place] at which point he slipped in the shower and fell onto his left side sustained immediate pain and was unable to ambulate or put pressure on the left lower extremity. 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 He is remote history of a microdiskectomy. And he sees a neurologist. Typically ambulates without assistive devices but states his walking is ?not great?. Denies any head injury or injury to other body part. No personal or family history of blood clots. He has had a TIA and takes aspirin. His is with him at bedside today. Denies any prior hip pain He was brought to [facility] by EMS. He was found to have a hip fracture. This was prescribed by the radiologist as an intertrochanteric hip fracture however on review it appears to be a vertical femoral neck fracture and therefore my partner Dr. Nunn has asked me to take a look at it for treatment as we would recommend with an unstable femoral neck variant fracture arthroplasty over internal fixation. Meds Home Medications and Allergies Home Medications Medication Instructions Recorded Confirmed Type aspirin 81 mg tablet 81 mg PO BID 09/17/23 09/17/23 History atorvastatin 20 mg tablet 20 mg PO BEDTIME 09/17/23 09/17/23 History cyanocobalamin (vitamin B-12) 5,000 mcg PO DAILY 09/17/23 09/17/23 History 5,000 mcg sublingual tablet (Vitamin B-12) gabapentin 100 mg capsule 100 mg PO QID 09/17/23 09/17/23 History hydrochlorothiazide 12.5 mg capsule 12.5 mg PO QAM 09/17/23 09/17/23 History multivit with minerals-iron 18 1 tab PO DAILY 09/17/23 09/17/23 History mg-folic ac 400 mcg-vit K 25 mcg tablet (Adults Multivitamin) Allergies Allergy/AdvReac Type Severity Reaction Status Date / Time No Known Drug Allergies Allergy Verified 09/18/23 14:13 Review of Systems Review of Systems Narrative: History of some numbness left lower extremity greater than right, sequelae of remote spine surgery ROS: Yes All systems reviewed with the patient and are negative except as otherwise documented Exam Vital Signs (past 8 hours): - 09/18/23 08:00 09/18/23 12:00 Temperature 98.2 F 98.8 F Pulse Rate 95 H 89 Respiratory Rate 16 17 Blood Pressure 132/72 118/66 Pulse Oximetry 97 96 Oxygen Flow Rate 0 0 Oxygen Delivery Method Room Air Oxygen Flow Rate 0 Narrative Exam Narrative: Alert oriented male in no acute distress lying in the hospital bed. at bedside. HEENT exam normocephalic atraumatic Moving bilateral upper extremities without limitation Heart regular rate and rhythm Lungs clear to auscultation Speaking clearly Left lower extremity slightly externally rotated benign-appearing knee. Tenderness around the left hip. Remainder of motor examination on left side deferred due to known hip fracture. Demonstrates active dorsiflexion plantar flexion of the left ankle. Palpable dorsalis pedis pulse. Calf is soft. Right lower extremity is benign 5/5 dorsiflexion plantar flexion. Knee without effusion. Objective Imaging AP pelvis left lateral hip x-ray: My impression: Left proximal femur fracture, shortened CT scan left hip and pelvis: My impression: Vertical femoral neck fracture, displaced Radiologist's impression: Reading radiologist called this an intertrochanteric fracture. However I had a radiologist look over it with me now who agrees vertical pattern femoral neck fracture. Labs 09/18/23 06:35 09/18/23 06:35 Labs: Laboratory Results - last 24 hr 09/17/23 09/17/23 09/17/23 20:15 20:19 21:20 WBC 10.9 RBC 4.16 L Hgb 14.2 Hct 41.1 MCV 98.6 MCH 34.1 H MCHC 34.6 RDW 13.1 Plt Count 169 Neut % (Auto) 73.5 Lymph % (Auto) 16.2 L [place] % (Auto) 9.3 Eos % (Auto) 0.5 L Baso % (Auto) 0.5 Neut # (Auto) 8000 H Lymph # (Auto) 1800 [place] # (Auto) 1000 H Eos # (Auto) 100 Baso # (Auto) 100 PT 11.8 INR 1.0 Sodium 130 L Potassium 3.8 Chloride 98 Carbon Dioxide 24 BUN 27 H Creatinine 0.99 Estimated GFR > 60 BUN/Creatinine Ratio 27.3 H Glucose 149 H Calcium 10.7 H Total Bilirubin 0.9 AST 39 ALT 26 Alkaline Phosphatase 71 Total Protein 7.2 Albumin 4.0 Globulin 3.2 Albumin/Globulin Ratio 1.3 Blood Type A Positive Antibody Screen Negative 09/18/23 06:35 WBC 7.9 RBC 4.14 L Hgb 13.9 Hct 40.7 L MCV 98.5 MCH 33.6 MCHC 34.2 RDW 13.3 Plt Count 164 Neut % (Auto) 67.6 Lymph % (Auto) 17.1 L [place] % (Auto) 12.7 Eos % (Auto) 2.0 Baso % (Auto) 0.6 Neut # (Auto) 5400 Lymph # (Auto) 1400 [place] # (Auto) 1000 H Eos # (Auto) 200 Baso # (Auto) 0 PT INR Sodium 131 L Potassium 3.6 Chloride 98 Carbon Dioxide 24 BUN 19 Creatinine 0.85 Estimated GFR > 60 BUN/Creatinine Ratio 22.4 H Glucose 95 Calcium 10.1 Total Bilirubin AST ALT Alkaline Phosphatase Total Protein Albumin Globulin Albumin/Globulin Ratio Blood Type Antibody Screen [facility] Medical History TIA (transient ischemic attack) HLD (hyperlipidemia) HTN (hypertension) Nephrolithiasis Surgical History H/O Spinal surgery H/O cystoscopy Hx of inguinal hernia surgery Social History marital status: household members: spouse Tobacco & Substance Use Smoking Status: Never smoker alcohol intake: current Assessment & Plan Assessment and plan (1) Fracture of hip, left, closed: Problem details: Traumatic Qualifiers: Encounter type: initial encounter Qualified Code(s): S72.002A - Fracture of unspecified part of neck of left femur, initial encounter for closed fracture Status: Acute Plan Displaced vertical pattern femoral neck fracture. Unstable fracture and a area of the femoral neck with poor blood supply and concern for healing. Recommend hemiarthroplasty, partial replacement hip surgery for predictable immediate weight-bearing given this unstable fracture with poor potential for healing and blood supply. We discussed the risks and benefits of surgery. We discussed hip fracture repair with partial hip replacement is designed to allow immediate weight-bearing and help reduce the risks of prolonged immobility. The risks and benefits of the procedure have been discussed with the patient and given the opportunity to ask questions. The risks of surgery include but are not limited to infection, fracture, persistence of pain, damage to nerves and blood vessels, posttraumatic arthritis, leg length discrepancy, DVT, PE, cardiopulmonary complications and . The patient expressed a thorough understanding of the risks and benefits of surgery and has elected to proceed. Consent was signed. We discussed with the treatment for displaced hip fracture in almost all patients except for those with very short life expectancy is surgical in order to promote mobilization, pain relief and function. We discussed use of assistive device after surgery. DVT prophylaxis postop will be Lovenox unless mobilizing well at which point this can be adjusted to aspirin 81 mg b.i.d.. High-level medical decision-making decision for surgery. Major orthopedic surgery with partial hip replacement for left hip fracture. This patient will need inpatient admission and social work assistance as he will not be able to return [place]. He has plans to fly back home to [place] on October 07. Time-Based Coding :: >60spent with patient and on the chart (including review of chart, obtaining history, exam, reviewing outside data, placing orders, documenting exam and treatment plan, and counseling patient) on [DATE].
[2023-09-18] MEDS: LACTATED RINGERS 1,000 ML 42 ML IV (14:36)
--- NOTE | 2023-09-18 14:37 | P.OP_ITS ---
Operative Date/Time/Diagnoses Date of procedure: 09/18/23 Time of procedure: 15:37 Pre-op diagnosis: Left hip fracture, femoral neck, displaced Post-op diagnosis: same Procedure & Clinicians Procedure: Hemiarthroplasty for repair of left femoral neck fracture CPT code 09644 Same procedure as scheduled: Yes Indications: The patient is an 88-year-old did have a ground level fall and sustained a displaced left hip fracture. He was indicated for a partial hip replacement for his displaced left hip fracture. The risks and benefits of the procedure have been discussed with the patient and given the opportunity to ask questions. The risks of surgery include but are not limited to infection, fracture, persistence of pain, damage to nerves and blood vessels, posttraumatic arthritis,, leg length discrepancy, dislocation, DVT, PE, cardiopulmonary complications and . The patient expressed a thorough understanding of the risks and benefits of surgery and has elected to proceed. Consent was signed Surgeon: Alexandra Marroquin Air Export Logistics Manager: Bulmaro Campos Anesthesia Type: General and Local Operative Notes Findings: Displaced vertical femoral neck fracture left Closure Type: primary Specimen(s): none sent Prosthetic devices, grafts, tissues, transplants, or devices: [employer] Synergy cemented tobi arthroplasty, Synergy stem cobalt chromium size 13, tandem unipolar head size 49mm +4 neck, 10 mm centralizer medium restrictor Estimated Blood Loss (mL): 250 Blood products transfused: none Tourniquet time (min): 0 Procedure in detail: During the operation, the services of a physician manager surgical were medically indicated and necessary to provide the exposure of the operative site for the surgical procedure and to maintain the limb in a proper position to carry out the operation safely and efficiently. Without a qualified residential living assistant being present this would extended the operative procedure and made the procedure technically more difficult to perform. Hemiarthroplasty for femoral neck fracture CPT code 62164. Patient was seen in the preoperative area the site of surgery was marked and informed consent confirmed. This was the left hip. The patient was brought back to the operating room by the anesthesia team. Patient was positioned supine on the operative table. General anesthetic was administered. Patient was then moved into the lateral position. The hip library technician positioner pads were then placed. A well-padded axillary roll was placed and the arms were appropriately positioned. The affected lower extremity was prepped and draped from the ankle to the iliac crest with ChloraPrep in the standard fashion sterile drapes were placed. Formal time-out procedure was performed confirming the patient's side and site of surgery, presence of informed consent, administration of appropriate preoperative antibiotics. Hip was approached through a standard posterior approach. Dissection was carried down through the skin and subcutaneous tissues sharply through the skin and then with the Bovie through the subcutaneous tissues. The fascia erwin was exposed and opened. Fascia was opened using the Bovie and the gluteus ida was spread with finger retraction. The Charnley retractor was placed. The inflamed bursa was resected. The piriformis was then identified. A Cobra retractor was placed under the gluteus medius to help expose the external rotators. Aquamantys was used for hemostasis. The piriformis and short external rotators were tagged with a 2 Ethibond and divided of the trochanter. These were then retracted posteriorly to protect sciatic nerve. The femur was then flexed and internally rotated to present the femoral neck and the fracture. A corkscrew and a Medina were used to remove the femoral head from the acetabulum. This was measured to fit a 49 mm head. Next the femur was presented. A clean-up neck cut was made in a minimal fashion. The trial head size was trialed in the acetabulum. Attention was then turned to the femur. The canal was opened with a box cutting osteotome. This followed by the canal finer and a lateralizing Reamer. The tapered reamers were then used up to a size 13 mm. Then broaching was sequentially done up to a size 13 mm. Trial components were placed. The patient was stable in the position of sleep, squatting and could be put through a range of motion with 70? of internal rotation without dislocation. This was felt to be appropriate. An intraop a AP pelvis x-ray was obtained to assess component position. Final components were then selected. The final stem was a size 13 mm. Femoral canal was prepared . The distal small restrictor was placed approximately 1 cm distal to the end of the planned implant. The bone was meticulously cleaned with pulse lavage. Canal was then packed with gauze. Two packages of cement were mixed and carefully pressurized into the femoral canal. The femoral component was then placed without difficulty. This was held in place until the cement hardened. The repeat trial reduction showed good range of motion and stability. The final head and neck were then carefully placed. The wound was irrigated. The capsule and muscular flap was repaired with the 2. Ethibond. Next the short external rotators were repaired to the greater trochanter through drill holes in the greater trochanter using the 2.5 drill and a [employer] suture Passer. These were tied with the leg in abduction. The wound was then irrigated again. The fascia erwin was closed with 0 Vicryl and the subcutaneous layer was closed with 2-0 Vicryl, 4-0 Monocryl and the skin with riley. Local anesthetic with 266 mg Exparel and bupivacaine was used for local anesthetic. A denton dressing was placed as the patient was felt to be a little oozy.. A pillow was placed for abduction protection. The drapes removed and the patient was taken to the recovery room in good condition. There no immediate complications from this procedure. All counts were correct. Postoperative AP pelvis x-ray was obtained in the PACU showed appropriate alignment of the cemented hip hemiarthroplasty with no evidence of fracture. Complications: none Post-operative Condition: stable Disposition: PACU Plan for aftercare: Weightbear as tolerated. Use assistive devices. Work with physical therapy and occupational therapy. We will use 40 mg of Lovenox subcutaneous daily x4 weeks for DVT prophylaxis unless mobilizing well then can be converted to 81 mg of aspirin b.i.d. instead. Posterior hip precautions x6 weeks. Denton dressing will work for 1 week and then battery we will stop working and the hose and battery pack can be removed. The dressing can stay in place until wound check in 2 weeks.. Riley remain in place 2 weeks. Follow up in orthopedic clinic for wound check in 2 weeks.
[2023-09-18] MEDS: CEFAZOLIN 2 GM/100 ML PREMIX 100 ML IV ×2 (15:17→23:02)
[2023-09-18] MEDS: TRANEXAMIC ACID 1,000 MG in SODIUM CHLORIDE 0.9% 100 ML 200 MG IV ×2 (15:20→17:09)
--- NOTE | 2023-09-18 15:41 | SUR.OPER ---
Lateral on padded OR bed. Gel axillary roll. Arms secured on padded armboard with pillow supporting top arm. Padded hip positioner braces x4 - anterior and posterior chest and pelvis. Additional gel pad used anterior pelvis. Gel pad under bottom leg from knee to foot and secured with tape over sheet.
[2023-09-18] MEDS: ACETAMINOPHEN IV 1,000 MG/100 ML VIAL 400 MG IV (15:56)
[2023-09-18] MEDS: BUPIVACAINE LIPOSOME 266 MG/20 ML VIAL INJ (16:02)
[2023-09-18] MEDS: BUPIVACAINE 0.25% (PF) 60 ML, EPINEPHrine 0.15 MG INJ (16:02)
[2023-09-18] MEDS: EPINEPHrine 1 MG/ML IRR (16:05)
--- NOTE | 2023-09-18 16:27 | DI.RAD.S_ITS ---
PROCEDURE: XR PELVIS 1-2V INDICATIONS: INNER OP TECHNIQUE: Intra-operative view of the pelvis and hip acquired. COMPARISON: None. FINDINGS: Bones: Intraoperative devices prior to placement of arthroplasty prostheses are in expected positions. No fractures or suspicious bony lesions. Soft tissues: Overlying surgical retractors are present, along with other intraoperative changes. IMPRESSION: Intraoperative appearance during left hip arthroplasty. Dictated by: Eden Gilliland M.D. on 09/18/2023 at 17:13 Approved by: Eden Gilliland M.D. on 09/18/2023 at 17:13
--- NOTE | 2023-09-18 17:30 | DI.RAD.S_ITS ---
PROCEDURE: XR PELVIS 1-2V INDICATIONS: POST OP UMER ARTHROPLASTY TECHNIQUE: 1 view(s) of the pelvis acquired. COMPARISON: [facility], CR, XR PELVIS 1-2V, 09/18/2023, 16:11. FINDINGS: Bones: Left hip hemiarthroplasty changes. Lumbosacral degenerative changes. Soft tissues: Postoperative changes IMPRESSION: Left hip hemiarthroplasty postoperative changes. Dictated by: Luis Fernando Arndt M.D. on 09/19/2023 at 8:35 Approved by: Luis Fernando Arndt M.D. on 09/19/2023 at 8:36
[2023-09-18] MEDS: LABETALOL 20 MG/4 ML SYRINGE 5 MG IV (18:34)
[2023-09-18 19:29] LABS: Add Manual Diff / Slide Review NO; Basophils Absolute Auto 0 /uL (0-100); Basophils Percent Auto 0.2 % (0-2); Eosinophils Absolute Auto 0 /uL (0-450); Eosinophils Percent Auto 0.1 % (2-4); Hematocrit 38.6 % (41-53); Hemoglobin 13.1 g/dL (13.5-17.5); Lymphocytes Absolute Auto 500 /uL (1100-4500); Lymphocytes Percent Auto 4.3 % (25-40); Mean Corpuscular Hemoglobin 33.6 PG (26-34); Mean Corpuscular Volume 98.8 fL (80-100); Monocytes Absolute Auto 300 /uL (0-900); Monocytes Percent Auto 2.7 % (3-14); Neutrophils Absolute Auto 10300 /uL (1500-7000); Neutrophils Percent Auto 92.7 % (50-75); Platelet Count 148 X10^3/uL (150-400); Red Blood Cell Count 3.91 X10^6/uL (4.5-5.9); Red Cell Distribution Width 13.3 % (11.6-14.8); White Blood Cell Count 11.2 X10^3/uL (4.5-11.0)
[2023-09-18] MEDS: SENNOSIDES 8.6 MG TABLET 17.2 MG PO (20:07)
[2023-09-18] MEDS: LACTATED RINGERS 1,000 ML 100 ML IV (20:07)
[2023-09-18] MEDS: ATORVASTATIN 20 MG TABLET PO (20:08)
[2023-09-18] MEDS: ONDANSETRON 4 MG/2 ML INJ IV (22:57)
[2023-09-19 06:00] VITALS: BP 122/63; PULSE 94; RESP 16; TEMP 36.8; O2SAT 96
[2023-09-19] MEDS: THYROID, PORK 30 MG TABLET 60 MG PO (06:34)
[2023-09-19 06:51] LABS: Hematocrit 33.7 % (41-53); Hemoglobin 11.6 g/dL (13.5-17.5); Mean Corpuscular HGB Conc 34.4 % (30-36); Mean Corpuscular Hemoglobin 33.6 PG (26-34); Mean Corpuscular Volume 97.7 fL (80-100); Platelet Count 151 X10^3/uL (150-400); Red Blood Cell Count 3.45 X10^6/uL (4.5-5.9); Red Cell Distribution Width 12.8 % (11.6-14.8); White Blood Cell Count 11.1 X10^3/uL (4.5-11.0)
[2023-09-19 07:18] LABS: BUN Creatinine Ratio 24.1 (6-22); Blood Urea Nitrogen 19 mg/dL (9-20); Calcium 9.5 mg/dL (8.4-10.2); Carbon Dioxide 25 mmol/L (22-32); Chloride 97 mmol/L (98-107); Estimated Glomerular Filt Rate > 60 mL/min (>60); Glucose 137 mg/dL (80-110); HEMOLYSIS < 15 (0-50); Potassium 4.4 mmol/L (3.4-5.1); Sodium 126 mmol/L (137-145)
--- NOTE | 2023-09-19 07:23 | PM.PN.1 ---
Subjective Subjective Interval history: Summary: This is a pleasant 88-year-old gentleman who slipped and had a subsequent fracture of his left hip. He underwent ORIF on September 17. This was uncomplicated. Subjective: Great pain control, ambulated with occupational therapy. No chest pain, or shortness a breath. Exam Vital Signs (past 8 hours): - 09/18/23 23:28 09/19/23 06:00 Temperature 97.4 F L 98.2 F Pulse Rate 85 94 H Respiratory Rate 17 16 Blood Pressure 143/75 H 122/63 Pulse Oximetry 97 96 Oxygen Flow Rate 0 Fraction of Inspired Oxygen 28 SaO2/FiO2 Ratio 339 Oxygen Delivery Method Nasal Cannula Oxygen Flow Rate 0 Narrative Exam Narrative: NAD, alert and oriented. Fluent speech. Lungs are clear, normal rate and effort. Heart is regular, 3/6 systolic murmur and nogallop or rub. Abdomen is soft, non distended. Extremities are free of edema. Objective Labs 09/19/23 06:28 09/19/23 06:28 Labs: Laboratory Results - last 24 hr 09/18/23 09/19/23 19:23 06:28 WBC 11.2 H 11.1 H RBC 3.91 L 3.45 L Hgb 13.1 L 11.6 L Hct 38.6 L 33.7 L MCV 98.8 97.7 MCH 33.6 33.6 MCHC 34.0 34.4 RDW 13.3 12.8 Plt Count 148 L 151 Neut % (Auto) 92.7 H D Lymph % (Auto) 4.3 L [place] % (Auto) 2.7 L Eos % (Auto) 0.1 L Baso % (Auto) 0.2 Neut # (Auto) 73012 H Lymph # (Auto) 500 L [place] # (Auto) 300 Eos # (Auto) 0 Baso # (Auto) 0 Sodium 126 L Potassium 4.4 Chloride 97 L Carbon Dioxide 25 BUN 19 Creatinine 0.79 Estimated GFR > 60 BUN/Creatinine Ratio 24.1 H Glucose 137 H Calcium 9.5 PFSH Medical History Aortic stenosis TIA (transient ischemic attack) HLD (hyperlipidemia) HTN (hypertension) Nephrolithiasis Surgical History H/O Spinal surgery H/O cystoscopy Hx of inguinal hernia surgery Social History marital status: household members: spouse Smoking Status: Never smoker alcohol intake: current Assessment & Plan Assessment & Plan narrative: 1. Left hip intertrochanteric fracture, present on admission and active. 2. Hyponatremia, present on admission and active. 3. Nephrolithiasis, present on admission and active. 4. Moderate Aortic stenosis, present on admission and active. Chronic medical conditions: HTN, hold HCTZ 12.5mg HLD, continue home statin therapy atorvastatin 20mg History of TIA 2005, ASA 81mg BID History of Spinal surgery with neuropathy, continue home Gabapentin History of bilateral inguinal hernia surgery PLAN: -hold hydrochlorothiazide for hyponatremia, urine sodium. Monitor q.12 hours. -analgesia for hip fracture. -DVT prophylaxis with Lovenox 40 daily. -monitor hemoglobin. -monitor breathing status with aortic stenosis, he has propensity for fluid retention. -resume ASA 81 daily DNR SAMUEL is September 19, we will need [facility] facility transition for rehabilitation. Time-Based Coding :: 25 min spent with patient and on the chart (including review of chart, obtaining history, exam, reviewing outside data, placing orders, documenting exam and treatment plan, and counseling patient) on 09/18.
[2023-09-19 08:00] VITALS: BP 123/59; PULSE 93; RESP 16; TEMP 37.4; O2SAT 96
--- NOTE | 2023-09-19 09:05 | PT.IIE ---
Current Diagnoses Hypo-osmolality and hyponatremia (09/17/23) Calculus of kidney (09/17/23) Fracture of unspecified part of neck of left femur, initial encounter for closed fracture (09/17/23) Surgery Performed Operation Date: 09/18/23 15:15 Actual Procedures p Left Hip Hemiarthroplasty (Cemented Unipolar)(Left) - Alexandra Marroquin MD Surgical History (Last Reviewed 09/19/23 @ 07:24 by Ernesto Mistry MD) H/O cystoscopy H/O Spinal surgery Hx of inguinal hernia surgery Medical History (Last Reviewed 09/19/23 @ 07:24 by Ernesto Mistry MD) Aortic stenosis HLD (hyperlipidemia) HTN (hypertension) Nephrolithiasis TIA (transient ischemic attack) Physical Therapy Inpatient Evaluation/Re-Eval M1 PT/OT-IP Prior Functional Status Start: 09/18/23 07:24 Freq: NEEDED Status: Active Protocol: Document 09/19/23 09:05 AB (Rec: 09/19/23 12:53 AB [id number]) Medical Review Prior Functional Status Medical History Reviewed Yes Communication able to make needs known Mobility and Gait pt stated that he was independent with all mobilities and ambulation without AD Social History Household Members spouse Living Arrangements House Number of Stairs To Enter/Railing? pt plans to go to a motel Additional Social History Comment pt stated that spouse has Alzheimer's dse and will not be able to assist him much pt lives between [place] and [facility] but currently, the house in [facility] does not have water and pt will not be going back there. pt stated that they might go to a motel for now M2 PT-IP Current Condition Start: 09/18/23 07:24 Freq: NEEDED Status: Active Protocol: Document 09/19/23 09:05 AB (Rec: 09/19/23 12:53 AB [id number]) Physical Therapy Current Condition Current Condition Evaluation Date 09/19/23 Treatment Diagnosis L hip fx s/p L hip hemiarthroplasty; difficulty in walking Onset Date 09/17/23 M3 PT-IP Subjective Start: 09/18/23 07:24 Freq: NEEDED Status: Active Protocol: Document 09/19/23 09:05 AB (Rec: 09/19/23 12:53 AB [id number]) Subjective Physical Therapy Visit Type Type Initial Evaluation Visit Start Time 09:05 Visit Stop Time 09:55 Number of SALES SERVICE COORDINATOR Visits 0 Physical Therapy Visit Comments Patient Comments agreeable to do PT Therapy Pain Assessment Pain When Pain Assessed During Mobility Pain Present Pain Present Pain Reported Location Left Hip Intensity 2 Scale Used Numeric (0 - 10) Pain Management Techniques Distraction,Modification of Treatment,Re-positioning, Timing of Activity with Medications M4 PT-IP Mobility and Gait Start: 09/18/23 07:24 Freq: NEEDED Status: Active Protocol: Document 09/19/23 09:05 AB (Rec: 09/19/23 12:53 AB [id number]) PT-Bed Mobility Assessment Supine to Sit Supine to Sit Maximum Assistance,Head of Bed Elevated Sit to Supine Sit to Supine Standby Assistance PT-Transfer Assessment Sit to and From Stand Sit to and from Stand Maximum Assistance,1 Person Assistance,Use of Upper Extremities Equipment Transfer Assistive Device Gait Belt,Front Wheeled Walker Orthotic/Prosthetic Devices or Brace: No Transfers Transfer Destination Bed,Chair Transfer Technique ambulated Transfer Ability Level of Assist Moderate Assistance,1 Person Assistance,Use of Upper Extremities Comments Mobility Comments pt sitting on the chair and agreeable to do PT. obtained PLOF and home set up from pt. post-op folder provided and reviewed contents. pt's spouse arrived. educated pt and spouse regarding pt's posterior L hip precautions. pt requires cues to recall. pt completed sit to stand from chair max A and max cues for precautions and techniques. pt ambulated in room using FWW ~ 30 ft mod A and cues with ( +) L knee buckling x 2 requiring mod A for recovery. pt sat on EOB. completed sit to supine SBA with cues for hip precautions. pt completed supine to sit max A and max cues. pt tends to cross LLE over midline and twist to get up and reminded of precautions . pt completed sit to stand from EOB max A and cues. required 3 attempts to get up. pt completed step transfer to chair mod A and cues using FWW. positioned pt on the chair. call light and table placed within reach. informed pt regarding SNF rehab and pt does not want to go to SNF due to pt worried about leaving spouse alone. Gait Assessment Gait Gait Assistance Required: Moderate Assistance,1 Person Assist Distance (Feet) 30 Able to Maintain Weight Bearing Status Yes During Gait Assistive Devices Assistive Device Gait Belt,Front Wheeled Walker Orthotic/Prosthetic Devices or Brace: No Gait Deviations General Gait Pattern Antalgic,Ataxic,Decreased Stride Length,Decreased Feet Clearance Factors Limiting Gait Function Factors Limiting Gait Function Decreased Activity Tolerance, Decreased Strength,Difficulty Following Directions,Limited Range of Motion,Pain,Poor Balance,Poor Safety Awareness PT-Balance Assessment Sitting Balance and Reactions Static Sitting Balance Ability Good Dynamic Sitting Balance Ability Fair Standing Balance and Reactions Static Standing Balance Ability Fair Dynamic Standing Balance Ability Poor Device Used FWW M5 PT-IP Objective Assessments Start: 09/18/23 07:24 Freq: NEEDED Status: Active Protocol: Document 09/19/23 09:05 AB (Rec: 09/19/23 12:53 AB [id number]) Orientation Orientation/Cognition Level of Alertness Alert Orientation Name,Place,Situation Safety Awareness Decreased Safety Awareness Memory Description Short Term Impaired,Registered Nurse Float Pool Impaired Gross Range of Motion Lower Extremity ROM Assessment Within Functional Limits Strength Lower Extremity Strength Assessment Bilaterally Impaired Comments Strength Comments RLE: 4-/5 LLE: 3-/5 Sensation Assessment Sensation Gross Sensation WNL Muscle Tone Muscle Tone WNL Yes M6 PT-IP Treatment Start: 09/18/23 07:24 Freq: NEEDED Status: Active Protocol: Document 09/19/23 09:05 AB (Rec: 09/19/23 12:53 AB [id number]) Physical Therapy Treatment Education Education Provided Precautions,Weight Bearing Status,Post-Op Packet,Safety M7 PT-IP Assessment and Plan Start: 09/18/23 07:24 Freq: NEEDED Status: Active Protocol: Document 09/19/23 09:05 AB (Rec: 09/19/23 12:53 AB [id number]) PT Summary Assessment and Plan Potential Rehabilitation Potential Fair Status of Condition at Evaluation Evolving Summary Impairments Pain,ROM,Strength,Balance, Coordination,Sensation,Tone, Cognition,Bed Mobility, Transfers,Gait,Activity Tolerance Assessment Summary pt is an 88 y/o M who had a fall and sustained a L hip fx. pt underwent L hip hemiarthroplasty POD 1. pt with L hip posterior precautions and is WBAT. pt requiring mod to max A with mobility using FWW and will require 05/09 assist availability at this time. pt will require SNF rehab. currently, pt refusing to go to SNF. will continue to assess. Goals Bed Mobility Goal Minimal Assistance Transfer Goal Minimal Assistance,Front Wheeled Walker Gait Goal Minimal Assistance,Front Wheel Walker Gait Distance 100 Other Goals improve bed mobility, transfers, ambulation using fWW ~ 150 ft SBA Days to Meet Goals 10 Frequency of Treatment Frequency Of Treatment Twice a Day Other frequency 1-2x/day or as tolerated Treatment Plan Physical Therapy Treatment Plan Bed Mobility Training,Transfer Training,Gait Training, Therapeutic Exercise,Balance Retraining,Post Op Education, Discharge Planning,Hot or Cold Pack,Neuromuscular Re-ed, Coordination Retraining,Manual Therapy Precautions Posterior Hip Precautions No Hip Flexion > 90 degrees,No Hip Internal Rotation,No Hip Adduction Weight Bearing Status Weight Bearing Status Weight Bear as Tolerated Allowed Weight Bearing Amount (enter % LLE WBAT or #) (%) Recommendations To Nursing Amount of Assist Needed 1 Person Assist Discharge Recommendations PT Discharge Recommendations SNF Rehab Equipment Needed for Home Before FWW if pt goes home Discharge Transportation Needs at Discharge Private Vehicle,Wheelchair/ Cabulance
--- NOTE | 2023-09-19 09:05 | OT.IP.EVAL ---
Current Diagnoses Hypo-osmolality and hyponatremia (09/17/23) Calculus of kidney (09/17/23) Fracture of unspecified part of neck of left femur, initial encounter for closed fracture (09/17/23) Surgery Performed Operation Date: 09/18/23 15:15 Actual Procedures p Left Hip Hemiarthroplasty (Cemented Unipolar)(Left) - Alexandra Marroquin MD Past Medical History (Last Reviewed 09/19/23 @ 07:24 by Ernesto Mistry MD) Aortic stenosis HLD (hyperlipidemia) HTN (hypertension) Nephrolithiasis TIA (transient ischemic attack) Surgical History (Last Reviewed 09/19/23 @ 07:24 by Ernesto Mistry MD) H/O cystoscopy H/O Spinal surgery Hx of inguinal hernia surgery Occupational Therapy Inpatient Evaluation/Re-Eval M1 PT/OT-IP Prior Functional Status Start: 09/18/23 07:24 Freq: NEEDED Status: Active Protocol: Document 09/19/23 13:26 CGR (Rec: 09/19/23 13:39 CGR [id number]) Medical Review Prior Functional Status Medical History Reviewed Yes Communication able to make needs known Mobility and Gait pt stated that he was independent with all mobilities and ambulation without AD Activities of Daily Living and IADL's Pt was IND in all ADLs and IADLs. Pt states he takes care of everythign for he and his who has the start of dementia. Social History Household Members spouse Living Arrangements House Number of Stairs To Enter/Railing? pt plans to go to a motel Additional Social History Comment pt stated that spouse has Alzheimer's dse and will not be able to assist him much pt lives between [place] and [facility] but currently, the house in [facility] does not have water and pt will not be going back there. pt stated that they might go to a motel for now M2 OT-IP Current Condition Start: 09/19/23 13:25 Freq: Status: Active Protocol: Document 09/19/23 13:26 CGR (Rec: 09/19/23 13:39 CGR [id number]) Occupational Therapy Current Condition Current Condition Evaluation Date 09/19/23 Treatment Diagnosis fall with L hip fx. 09/18/23 hemiarthroplasty Post Operative Precautions Posterior Hip Precautions No Hip Flexion > 90 degrees,No Hip Internal Rotation,No Hip Adduction Weight Bearing Status Weight Bearing Status Weight Bear as Tolerated M3 OT- IP Subjective and Pain Start: 09/19/23 13:25 Freq: Status: Active Protocol: Document 09/19/23 13:26 CGR (Rec: 09/19/23 13:39 CGR [id number]) OT- Subjective Occupational Therapy Visit Type Type Initial Evaluation Visit Start Time 08:27 Visit Stop Time 09:05 Notes Pt's present throughout. OT Pain Assessment Pain When Pain Assessed At Rest Pain Present Pain Present Pain Reported Location Left Hip Intensity 2 Scale Used Numeric (0 - 10) Management Techniques Distraction,Modification of Treatment,Re-positioning, Timing of Activity with Medications M4 OT- IP ADL's Start: 09/19/23 13:25 Freq: Status: Active Protocol: Document 09/19/23 13:26 CGR (Rec: 09/19/23 13:39 CGR [id number]) OT [id number] Comments OT Self-Feeding Comments not meal time OT ADL-Grooming General Evaluation Grooming Ability Standby Assistance Areas Needing Assistance Retrieving/Set-up of Grooming Items,Face Washing Comments OT Grooming Comments supine in bed OT ADL-Oral Care General Eval Oral Care Ability Standby Assistance Areas of Assistance Brushing Teeth,Retrieving/Set- Up of Items Comments Oral Care Comments supine in bed when OT entered. OT ADL-Dressing Comments OT Dressing Comments not performed OT ADL-Toileting General Evaluation Toileting Ability Standby Assistance Comments OT Toileting Comments urinated seated on toielt. OT ADL-Bathing Comments OT Bathing Comments not performed M5 OT- IP IADL's Start: 09/19/23 13:25 Freq: Status: Active Protocol: Document 09/19/23 13:26 CGR (Rec: 09/19/23 13:39 R [id number]) OT-Instrumental Activities of Daily Living Deficits IADL Deficits Identified No Deficits Home Safety Awareness Awareness of Need for Assistance at Home Good Awareness Ability to Problem Solve Emergency Able to Problem Solve Situations Medication Management Medication Management No Deficits Identified Money Management Money Management No Deficits Identified Meal Preparation Meal Preparation Comments Concerns regarding pts ability to perform Timers Inspector Timers Inspector Comments Concerns regarding pts ability to perform Driving Driving Comments Concerns regarding pts ability to perform M6 OT- IP Functional Cognition Start: 09/19/23 13:25 Freq: Status: Active Protocol: Document 08/06/24 13:26 CGR (Rec: 08/06/24 13:39 R [id number]) Cognitive Factors Limiting Selfcare Function Cognitive Ability Level of Alertness Alert Patient Orientation Name,Age,Birthday,Month,Date, Year,Day of Week,Place, Situation Attention Span Ability Capable of Focused Attention, Capable of Sustained Attention Ability to Follow Commands Able to Follow One Step Commands with Increased Time, Able to Follow One Step Commands with Repetition Cognitive Comments Cognitive Assessment Comments Pt is oriented but needs instructions repeated. OT- Vision and Hearing OT- Hearing Assessment OT- Hearing Assessment WFL OT- Vision Assessment Visual Acuity Glasses For Reading Visual Attentiveness WFL Occular Pursuits WFL Visual Convergence WFL M7 OT- IP Mobility and Balance Start: 09/19/23 13:25 Freq: Status: Active Protocol: Document 09/19/23 13:26 CGR (Rec: 09/19/23 13:39 [facility] [id number]) OT- Bed Mobility Assessment Supine to Sit Supine to Sit Assist Maximum Assistance,1 Person Assistance,Bedrails Scooting Scooting to Edge of Bed Standby Assistance,1 Person Assistance OT-Transfer Assessment Sit to and From Stand Sit to and from Stand Minimal Assistance,1 Person Assistance Transfers Transfer Ability Minimal Assistance,1 Person Assistance Technique Transfer Destination Bed,Chair,Toilet Transfer Technique Stand Step Pivot Devices Transfer Assistive Devices Gait Belt,Front Wheeled Walker Comments Mobility Comments Pt needed max a for bed mobility as he was unable to get out of bed while maintaining his hip precautions. Pt then ambulated to the chair and then to the toilet prior to returning to the chair at end of session. OT- Balance Assessment Sitting Balance and Reactions Static Sitting Balance Ability Good Dynamic Sitting Balance Ability Good M8 OT- IP Objective Assessments Start: 09/19/23 13:25 Freq: Status: Active Protocol: Document 09/19/23 13:26 CGR (Rec: 09/19/23 13:39 R [id number]) OT Gross Range of Motion Upper Extremity Range of Motion Assessment Within Functional Limits OT Strength Upper Extremity Strength Assessment Within Functional Limits Comments Strength Comments 5/ OT- Coordination Assessment Upper Extremity Finger to Nose Test Within Functional Limits Finger Tapping Test Within Functional Limits OT-Muscle Tone Assessment Muscle Tone WNL Yes OT Sensation Assessment Edema Edema Absent M9 OT- IP Assessment and Plan Start: 09/19/23 13:25 Freq: Status: Active Protocol: Document 09/19/23 13:26 CGR (Rec: 09/19/23 13:39 CGR [id number]) OT Summary Assessment and Plan Potential Rehabilitation Potential Excellent Analytic Complexity at Evaluation Moderate Summary OT Impairments Pain,Balance,Functional Cognition,Functional Mobility, Dressing,Toileting,Bathing, Toilet Transfers,Shower Transfers,Activity Tolerance Progress Towards Goals Progressing Toward Goals Assessment Summary Pt presents as a moderate complexity evaluation s/p admit for fall with L hip fx. Pt underwent 09/18/23 hemiarthroplasty. Pt currently with minimal pain of 1-2 to the hip but was unable to perform sup to sit without breaking his hip precautions. Goals Grooming Goal Independent Dressing Goal Independent Toileting Goal Independent Bathing Goal Independent Toilet Transfer Goal Independent Shower Transfer Goal Independent Days to Meet Goals 15 Frequency of Treatment Frequency Of Treatment Once a Day Treatment Plan OT Treatment Plan ADL Training,Functional Cognition Training,Functional Mobility,Patient/Family Education,Discharge Planning Other Treatment Recommendations and Next ADLS standing, showering, LB Treatment Focus dressing with DME Discharge Recommendations OT Discharge Recommendations Home vs SNF Other Discharge Recommendations Pt is planning to d/c to a hotel/motel and can request a handicap accessible room if he is mobilizing well enough to go home with wifes assist. Home Equipment Needs 2ww, shower chair, sock aid, customer servicer. Transportation Needs at Discharge Wheelchair/Cabulance
[2023-09-19] MEDS: CEFAZOLIN 2 GM/100 ML PREMIX 100 ML IV (09:14)
[2023-09-19] MEDS: ENOXAPARIN 40 MG/0.4 ML SYRINGE SUBCUT (09:14)
[2023-09-19] MEDS: GABAPENTIN 100 MG CAPSULE PO ×4 (09:14→21:21)
[2023-09-19] MEDS: ACETAMINOPHEN 325 MG TABLET 650 MG PO ×3 (09:14→21:21)
[2023-09-19] MEDS: DOCUSATE 100 MG CAPSULE PO ×2 (09:14→21:21)
[2023-09-19 12:00] VITALS: BP 131/63; PULSE 99; RESP 16; TEMP 37.5; O2SAT 97
--- NOTE | 2023-09-19 13:50 | PM.PNPO.1 ---
Subjective Subjective Date Patient Seen: 09/19/23 Time Patient Seen: 11:30 Interval history: Patient's hip pain has been mild. He has been able to get up and walk in the room. No numbness tingling in his lower extremities. Otherwise without complaints. Exam Vital Signs (past 8 hours): - 09/19/23 06:00 09/19/23 08:00 09/19/23 12:00 Temperature 98.2 F 99.3 F 99.5 F Pulse Rate 94 H 93 H 99 H Respiratory Rate 16 16 16 Blood Pressure 122/63 123/59 L 131/63 Pulse Oximetry 96 96 97 Oxygen Flow Rate 0 0 Fraction of Inspired Oxygen 28 SaO2/FiO2 Ratio 339 Oxygen Delivery Method Nasal Cannula Oxygen Flow Rate 0 Narrative Exam Narrative: Pleasant 88-year-old male resting comfortably in bedside chair in no apparent distress. Scant drainage on the shena dressing. Shena dressing is on and functioning. Motor functions intact bilateral lower extremities. Sensation grossly intact to light touch bilateral lower extremities. Const General: cooperative Orientation: alert Resp Effort & Inspection: normal respiratory effort and able to speak in complete sentences Objective Labs 09/19/23 06:28 09/19/23 06:28 Labs: Laboratory Results - last 24 hr 09/18/23 09/19/23 19:23 06:28 WBC 11.2 H 11.1 H RBC 3.91 L 3.45 L Hgb 13.1 L 11.6 L Hct 38.6 L 33.7 L MCV 98.8 97.7 MCH 33.6 33.6 MCHC 34.0 34.4 RDW 13.3 12.8 Plt Count 148 L 151 Neut % (Auto) 92.7 H D Lymph % (Auto) 4.3 L [place] % (Auto) 2.7 L Eos % (Auto) 0.1 L Baso % (Auto) 0.2 Neut # (Auto) 87798 H Lymph # (Auto) 500 L [place] # (Auto) 300 Eos # (Auto) 0 Baso # (Auto) 0 Sodium 126 L Potassium 4.4 Chloride 97 L Carbon Dioxide 25 BUN 19 Creatinine 0.79 Estimated GFR > 60 BUN/Creatinine Ratio 24.1 H Glucose 137 H Calcium 9.5 PFSH Medical History Aortic stenosis TIA (transient ischemic attack) HLD (hyperlipidemia) HTN (hypertension) Nephrolithiasis Surgical History H/O Spinal surgery H/O cystoscopy Hx of inguinal hernia surgery Social History marital status: household members: spouse Smoking Status: Never smoker alcohol intake: current Assessment & Plan Post-op Postoperative Procedures: Procedures Operation Date: 09/18/23 15:15 Actual Procedure Side Surgeon p Left Hip Hemiarthroplasty (Cemented Unipolar) Left Alexandra Marroquin MD Postoperative day: 1 Postoperative status: doing well Postoperative plan narrative: Status post hemiarthroplasty left, September 18, 2023. Weight-bearing as tolerated, posterior hip precautions x6 weeks. Lovenox 40 mg subQ daily x4 weeks for DVT prophylaxis unless mobilizing well he can be converted to 81 mg of aspirin b.i.d. instead. Follow up outpatient orthopedic clinic in 2 weeks for wound check, staple removal. Discharge per hospitalist.
--- NOTE | 2023-09-19 14:15 | CM.DPC ---
DCP Cont: Per PT/OT, pt moved well but to follow his precautions they feel pt would benefit from short SNF stay before home. [facility] confirms that they can accept pt and that pt actually has Medicare primary and no auth needed. They can transport pt tomorrow Wed if medically stable. BRIDGETT met bedside with pt and he states he now has concerns with spouse staying at a hotel by herself while he is at SNF. Discussed both going to [facility] with HH and pt would be agreeable with this but after further discussion preference now that he discharge to [facility] if pt can get into private pay Respite Stay at [facility] while he is at SNF. BRIDGETT called Pablo [phone] Admin at [facility] and discussed pt and spouse situation and he confirms they still have openings for Respite Stay and will call the patient today and then do bedside assessment with pt and spouse this afternoon to confirm they can accept. BRIDGETT updated RN and will waiting for confirmation from [facility]. BRIDGETT updated [facility]. Plan: BRIDGETT to follow for hopeful plan of pt discharge to [facility] when stable and to confirm [facility] can accept spouse for Respite Stay due to her mild dementia but independent with mobility. Hilda Badillo, [employer]
[2023-09-19 15:31] LABS: BUN Creatinine Ratio 23.5 (6-22); Blood Urea Nitrogen 28 mg/dL (9-20); Calcium 9.8 mg/dL (8.4-10.2); Carbon Dioxide 24 mmol/L (22-32); Chloride 94 mmol/L (98-107); Estimated Glomerular Filt Rate 59 mL/min (>60); Glucose 127 mg/dL (80-110); Potassium 4.7 mmol/L (3.4-5.1); Sodium 123 mmol/L (137-145)
[2023-09-19 15:39] LABS: HEMOLYSIS 68 (0-50)
[2023-09-19 16:00] VITALS: BP 146/78; PULSE 97; RESP 20; TEMP 37.3; O2SAT 99
[2023-09-19 20:00] VITALS: BP 145/65; PULSE 102; RESP 18; TEMP 37.4; O2SAT 96
[2023-09-19] MEDS: SODIUM CHLORIDE 0.9% FLUSH 10 ML IV (21:21)
[2023-09-19] MEDS: ATORVASTATIN 20 MG TABLET PO (21:21)
[2023-09-19] MEDS: SENNOSIDES 8.6 MG TABLET 17.2 MG PO (21:21)
[2023-09-19 23:00] VITALS: BP 129/65; PULSE 96; RESP 19; TEMP 37.4; O2SAT 98
[2023-09-20] VITALS: BP 129/65; PULSE 96; RESP 19; TEMP 37.4; O2SAT 98
[2023-09-20 04:00] VITALS: BP 130/77; PULSE 91; RESP 19; TEMP 37.2; O2SAT 96
[2023-09-20 04:12] LABS: Hematocrit 34.6 % (41-53); Hemoglobin 11.9 g/dL (13.5-17.5); Mean Corpuscular HGB Conc 34.4 % (30-36); Mean Corpuscular Hemoglobin 33.5 PG (26-34); Mean Corpuscular Volume 97.5 fL (80-100); Platelet Count 155 X10^3/uL (150-400); Red Blood Cell Count 3.55 X10^6/uL (4.5-5.9); Red Cell Distribution Width 13.2 % (11.6-14.8); White Blood Cell Count 10.8 X10^3/uL (4.5-11.0)
[2023-09-20 04:16] LABS: BUN Creatinine Ratio 28.4 (6-22); Blood Urea Nitrogen 25 mg/dL (9-20); Calcium 9.4 mg/dL (8.4-10.2); Carbon Dioxide 26 mmol/L (22-32); Chloride 99 mmol/L (98-107); Estimated Glomerular Filt Rate > 60 mL/min (>60); Glucose 102 mg/dL (80-110); HEMOLYSIS < 15 (0-50); Potassium 4.3 mmol/L (3.4-5.1); Sodium 126 mmol/L (137-145)
[2023-09-20] MEDS: THYROID, PORK 30 MG TABLET 60 MG PO (06:02)
[2023-09-20 08:00] VITALS: BP 151/79; PULSE 95; RESP 18; TEMP 36.9; O2SAT 96
[2023-09-20] MEDS: ENOXAPARIN 40 MG/0.4 ML SYRINGE SUBCUT (08:39)
[2023-09-20] MEDS: SODIUM CHLORIDE 1,000 MG TABLET 2000 MG PO (08:39)
[2023-09-20] MEDS: GABAPENTIN 100 MG CAPSULE PO (08:39)
[2023-09-20] MEDS: DOCUSATE 100 MG CAPSULE PO (08:39)
[2023-09-20] MEDS: ACETAMINOPHEN 325 MG TABLET 650 MG PO (08:39)
[2023-09-20] MEDS: SODIUM CHLORIDE 0.9% FLUSH 10 ML IV (08:44)
--- NOTE | 2023-09-20 09:41 | PT.IPTN ---
Current Diagnoses Hypo-osmolality and hyponatremia (09/17/23) Calculus of kidney (09/17/23) Fracture of unspecified part of neck of left femur, initial encounter for closed fracture (09/17/23) Surgery Performed Operation Date: 09/18/23 15:15 Actual Procedures p Left Hip Hemiarthroplasty (Cemented Unipolar)(Left) - Alexandra Marroquin MD Physical Therapy Treatment Note M2 PT-IP Current Condition Start: 09/18/23 07:24 Freq: NEEDED Status: Active Protocol: Document 09/19/23 09:05 AB (Rec: 09/19/23 12:53 AB [id number]) Physical Therapy Current Condition Current Condition Evaluation Date 09/19/23 Treatment Diagnosis L hip fx s/p L hip hemiarthroplasty; difficulty in walking Onset Date 09/17/23 M3 PT-IP Subjective Start: 09/18/23 07:24 Freq: NEEDED Status: Active Protocol: Document 09/20/23 09:41 AB (Rec: 09/20/23 11:55 AB [id number]) Subjective Physical Therapy Visit Type Type Treatment Note Visit Start Time 09:41 Visit Stop Time 10:40 Number of RECHECKER Visits 0 Physical Therapy Visit Comments Patient Comments agreeable to do PT Therapy Pain Assessment Pain When Pain Assessed During Mobility Pain Present Pain Present Pain Reported Location Left Hip Intensity 2 Scale Used Numeric (0 - 10) Pain Management Techniques Distraction,Modification of Treatment,Re-positioning, Timing of Activity with Medications M4 PT-IP Mobility and Gait Start: 09/18/23 07:24 Freq: NEEDED Status: Active Protocol: Document 09/20/23 09:41 AB (Rec: 09/20/23 11:55 AB [id number]) PT-Bed Mobility Assessment Supine to Sit Supine to Sit Maximum Assistance Sit to Supine Sit to Supine Minimal Assistance PT-Transfer Assessment Sit to and From Stand Sit to and from Stand Moderate Assistance,Maximum Assistance,1 Person Assistance ,Use of Upper Extremities Equipment Transfer Assistive Device Gait Belt,Front Wheeled Walker Orthotic/Prosthetic Devices or Brace: No Transfers Transfer Destination Chair Transfer Technique ambulated Transfer Ability Level of Assist Minimal Assistance,Moderate Assistance,1 Person Assistance ,Use of Upper Extremities Comments Mobility Comments pt supine in bed and agreeable to do PT. spouse in room with pt. reviewed posterior hip precautions with pt and pt recalled 2/3. pt completed supine to sit max A and max cues. able to sit on EOB CGA. completed sit to stand max A for EOB with max cues. required 2 attempts to stand. ambulated in room ~ 30 ft using FWW mod A and cues for L quads activation. presents with antalgic gait with NBOS. pt sat on the chair. educated for sit <>stand techniques. completes is to stand from chair x 2 reps requiring mod A and cues. pt stated that he is very tired today and wants to go back to bed. completed sit to stand mod A and cues and ambulated to the bed ~ 15 ft using FWW min to mod A and max cues. completed sit to supine min A and max cues. positioned pt on the bed. call light and table placed within reach. Gait Assessment Gait Gait Assistance Required: Minimum Assistance,Moderate Assistance Distance (Feet) 30 Able to Maintain Weight Bearing Status Yes During Gait Assistive Devices Assistive Device Gait Belt,Front Wheeled Walker Orthotic/Prosthetic Devices or Brace: No Gait Deviations General Gait Pattern Decreased Stride Length, Decreased Feet Clearance, Narrow Based Gait Factors Limiting Gait Function Factors Limiting Gait Function Decreased Activity Tolerance, Decreased Strength,Difficulty Following Directions,Limited Range of Motion,Pain,Poor Balance,Poor Safety Awareness M5 PT-IP Objective Assessments Start: 09/18/23 07:24 Freq: NEEDED Status: Active Protocol: Document 09/19/23 09:05 AB (Rec: 09/19/23 12:53 AB [id number]) Orientation Orientation/Cognition Level of Alertness Alert Orientation Name,Place,Situation Safety Awareness Decreased Safety Awareness Memory Description Short Term Impaired,Ladle Pourer Impaired Gross Range of Motion Lower Extremity ROM Assessment Within Functional Limits Strength Lower Extremity Strength Assessment Bilaterally Impaired Comments Strength Comments RLE: 4-/5 LLE: 3-/5 Sensation Assessment Sensation Gross Sensation WNL Muscle Tone Muscle Tone WNL Yes M6 PT-IP Treatment Start: 09/18/23 07:24 Freq: NEEDED Status: Active Protocol: Document 09/20/23 09:41 AB (Rec: 09/20/23 11:55 AB [id number]) Physical Therapy Treatment Education Education Provided Precautions,Safety M7 PT-IP Assessment and Plan Start: 09/18/23 07:24 Freq: NEEDED Status: Active Protocol: Document 09/20/23 09:41 AB (Rec: 09/20/23 11:55 AB [id number]) PT Summary Assessment and Plan Potential Rehabilitation Potential Good Summary Impairments Pain,ROM,Strength,Balance, Coordination,Sensation,Tone, Cognition,Bed Mobility, Transfers,Gait,Activity Tolerance Progress Towards Goals Slow Progress due to Activity Tolerance,Slow Progress - Other Assessment Summary pt improving slowly with mobility. pt requires max A for supine to sit and min A for sit to supine, mod to max A for sit to stand and min to mod A for ambulation using FWW . pt required cues with all tasks for precautions and safety. pt will benefit from SNF rehab to improve strength and function. Goals Bed Mobility Goal Minimal Assistance Transfer Goal Minimal Assistance,Front Wheeled Walker Gait Goal Minimal Assistance,Front Wheel Walker Gait Distance 100 Other Goals improve bed mobility, transfers, ambulation using fWW ~ 150 ft SBA Days to Meet Goals 10 Frequency of Treatment Other frequency 1-2x/day or as tolerated Treatment Plan Physical Therapy Treatment Plan Bed Mobility Training,Transfer Training,Gait Training, Therapeutic Exercise,Balance Retraining,Post Op Education, Discharge Planning,Hot or Cold Pack,Neuromuscular Re-ed, Coordination Retraining,Manual Therapy Weight Bearing Status Weight Bearing Status Weight Bear as Tolerated Allowed Weight Bearing Amount (enter % LLE WBAT or #) (%) Recommendations To Nursing Amount of Assist Needed 1 Person Assist Discharge Recommendations PT Discharge Recommendations SNF Rehab Transportation Needs at Discharge Private Vehicle,Wheelchair/ Cabulance
--- NOTE | 2023-09-20 10:39 | PM.DS.1 ---
History of Present Illness History of Present Illness Chief complaint: Left hip pain, fall Narrative: From H&P: States that he traveled from [facility] to [facility], due to water issues at location went to [place] to shower and slipped on soap falling on Left hip at 14.30. He was down for about 30 mins, was assisted up as not able to bear weight, and transported on ferry to [place]. Prior to fall was at baseline health. Denies head trauma or other injury. Denies any other complaints. Desires to discuss surgical options with Surgeon; prefers to be at large facility and would like to considering transfer options with Hospitalist in am. ED course: 4mg IV x1 ED consulted manager community relations Orthopedic surgeon Discharge Providers Provider Date of admission: 09/17/23 21:46 Discharge Date: 09/20/23 Consults: 09/17/23 21:46 Consult to Orthopedic Surgery Stat Comment: Consulting Provider: Mina Nunn Reason for consultation: LEFT INTERTROCHANTERIC HIP FX Has provider been notified: Yes 09/17/23 22:04 Consult to Occupational Therapy Evaluate & Treat Comment: Physician Instructions: Evaluate and treat Consult to Physical Therapy Evaluate & Treat Comment: Physician Instructions: Evaluate and Treat 09/18/23 19:01 Consult to Discharge Planning Routine Comment: Consult to Occupational Therapy Evaluate & Treat Comment: Physician Instructions: Evaluate and treat Consult to Physical Therapy Evaluate & Treat Comment: Physician Instructions: post op VAMSI protocol Discharge provider: Ernesto Mistry MD Summary Hospital Course Discharge Diagnosis: 1. Left hip intertrochanteric fracture, present on admission and active. 2. Hyponatremia, present on admission and active. 3. Nephrolithiasis, present on admission and active. 4. Moderate Aortic stenosis, present on admission and active. Hospital Course: He was admitted with a hip fracture and underwent a arthroplasty. Aspirin b.i.d. was recommended for DVT prophylaxis in the postoperative phase. He did very well postoperatively with pain control and early ability to ambulate. He was felt to require rehabilitation stay for ongoing strengthening and gait stability. He was stable for discharge to the half-way facility on September 19. Status at Discharge Cognitive/behavioral status at discharge: at baseline, oriented Functional status at discharge: uses cane/walker Overall status at discharge: patient is progressing back to baseline Time Spent with Patient Time spent: Greater than 30 minutes Exam Vital Signs (past 8 hours): - 09/20/23 04:00 09/20/23 08:00 Temperature 99.0 F 98.4 F Pulse Rate 91 H 95 H Respiratory Rate 19 18 Blood Pressure 130/77 151/79 H Pulse Oximetry 96 96 Fraction of Inspired Oxygen 28 SaO2/FiO2 Ratio 339 Oxygen Delivery Method Nasal Cannula Oxygen Flow Rate 0 Narrative Exam Narrative: NAD, alert and oriented. Fluent speech. Lungs are clear, normal rate and effort. Heart is regular, with systolic murmur. Abdomen is soft, non distended. Extremities are free of edema. Objective ECG Impression: NSR, no significant contiguous ST changes, no previous to compare Imaging Multiple studies:: Radiologist's impression: XR Left Hip: FINDINGS: Bones: Left hip appears foreshortened. There is subtle irregularity at the intertrochanteric femoral neck. No dislocations. Pelvic ring appears intact. No suspicious bony lesions. Soft tissues: The visualized bowel gas pattern is normal. No suspicious soft tissue calcifications. IMPRESSION: Suspect left hip fracture. Foreshortened appearance with irregularity at the intertrochanteric femoral neck. Hip CT: IMPRESSION: 1. Left hip intertrochanteric fracture. 2. Small stone in the urinary bladder. No hydroureter is seen. Small additional kidney stones. CXR: WNL. Labs 09/20/23 03:40 09/20/23 03:40 Labs: Laboratory Results - last 24 hr 09/19/23 09/20/23 14:55 03:40 WBC 10.8 RBC 3.55 L Hgb 11.9 L Hct 34.6 L MCV 97.5 MCH 33.5 MCHC 34.4 RDW 13.2 Plt Count 155 Sodium 123 L 126 L Potassium 4.7 4.3 Chloride 94 L 99 Carbon Dioxide 24 26 BUN 28 H 25 H Creatinine 1.19 0.88 Estimated GFR 59 L > 60 BUN/Creatinine Ratio 23.5 H 28.4 H Glucose 127 H 102 Calcium 9.8 9.4 PFSH Medical History Aortic stenosis TIA (transient ischemic attack) HLD (hyperlipidemia) HTN (hypertension) Nephrolithiasis Surgical History H/O Spinal surgery H/O cystoscopy Hx of inguinal hernia surgery Social History marital status: household members: spouse Smoking Status: Never smoker alcohol intake: current Discharge Assessment & Plan Assessment and Plan Assessment: 1. Left hip intertrochanteric fracture, present on admission and active. 2. Hyponatremia, present on admission and active. 3. Nephrolithiasis, present on admission and active. 4. Moderate Aortic stenosis, present on admission and active. Plan of Treatment: Stable for discharge to [facility] half-way [facility] for rehabilitation efforts. Discharge Plan Discharge Plan Patient Disposition: SNF Transfer to: [facility] Under care of provider: Dr. Hilliard Provider Discharge Comment: Stable for discharge to half-way facility for post hip fracture rehabilitation. Discharge orders & Medications Prescriptions: New gabapentin 100 mg Capsule 100 mg PO QID Qty: 40 0RF oxycodone 5 mg Tablet 5 mg PO Q3H PRN (Reason: Pain, Moderate (4-6)) Qty: 20 0RF thyroid (pork) [Amelia Thyroid] 30 mg Tablet 60 mg PO 0600 Qty: 30 0RF Continued gabapentin 100 mg Capsule 100 mg PO QID hydrochlorothiazide 12.5 mg Capsule 12.5 mg PO QAM aspirin 81 mg Tablet 81 mg PO BID Adults Multivitamin 18 mg iron-400 mcg-25 mcg Tablet 1 tab PO DAILY atorvastatin 20 mg Tablet 20 mg PO BEDTIME cyanocobalamin (vitamin B-12) [Vitamin B-12] 5,000 mcg Tablet, Sublingual 5,000 mcg PO DAILY Follow up/Referrals: Alexandra Marroquin MD [Physician] - (Two weeks) Discharge Health Status Multidrug resistant organism: No MDRO Precautions: [place] Diet/Activity/Treatments Diet: Regular Activity: Weight-bearing as tolerated, use assistive devices, posterior hip precautions x6 weeks. Skin/Wound/Dressing Care Dressing: [place] dressing will work for 1 week and then battery we will stop working and the hose and battery pack can be removed. Make sure to leave main dressing in place until follow up appointment. Special Rehabilitation Services Reason for rehabilitation: Post-operative therapy Rehab type: Physical therapy and Occupational therapy Visit Report/Discharge Packet Instructions: DI for Hip Fracture Stand Alone Forms: Patient Portal/API
--- NOTE | 2023-09-20 11:19 | CM.DPNOTE ---
DC Note Patient discharged to [facility] today, wheelchair transport has been arranged for package pick up at 1200. PASRR completed. Ammy CHAPA assisting with coordination of this discharge. Placed call to Pablo at [facility] P [phone] to discuss the admission of patient's Ayana for respite stay. Pablo explains that Ayana can go over to [facility] with patient, have lunch with him, then a staff member from [facility] will come get Ayana early this afternoon. Pablo has no concern about Ayana admitting today for respite at [facility]; they have medical records, orders, Rx from Ayana's PCP in [place]. Reviewed with patient and spouse Ayana who are agreeable to plan. Updated Jenna at [facility] with above. Plan: Discharge to [facility] via w/c van at 1200 package pick up. Spouse Ayana admitting to [facility] for respite today while patient is at rehab. BREANNE
[2023-09-20 12:00] VITALS: BP 131/62; PULSE 96
--- NOTE | 2023-09-20 12:47 | PC.NURSE ---
Pt is packed up and ready for discharge to [facility]. Spouse will be staying at [facility]. IV has been removed. SANDRO dsg blinking green and instructions have been sent with the Pt packet. Report called to Mercedes NORTON at [facility] and all questions answered. Pt is ready to discharge to SNF when transport arrives.
--- NOTE | 2023-09-20 13:02 | PC.NURSE ---
Pt out via w/c by [facility] transfer with Spouse and all belongings.
== END 2023-09-20 13:27 | DRG 522 ==
LOC: ED 21:36 → AC 21:47
PROVIDERS: Hospitalist; Orthopaedic Surgery Foot and Ankle Surgery; Admitting Provider Internal Medicine; Emergency Provider Emergency Medicine; Referring Provider Emergency Medicine; Visit Provider Internal Medicine
PROC: 0SRS0JZ Replacement of Left Hip Joint, Femoral Surface with Synthetic Substitute, Open Approach (ICD-10-PCS; CPT 27125; principal; 2023-09-18 15:15)
DX: S72.092A Other fracture of head and neck of left femur, initial encounter for closed fracture (principal); E87.1 Hypo-osmolality and hyponatremia; E83.52 Hypercalcemia; R73.9 Hyperglycemia, unspecified; I10 Essential (primary) hypertension; E78.5 Hyperlipidemia, unspecified; G62.9 Polyneuropathy, unspecified; I35.0 Nonrheumatic aortic (valve) stenosis; N20.0 Calculus of kidney; W01.0XXA Fall on same level from slipping, tripping and stumbling without subsequent striking against object, initial encounter; Z86.73 Personal history of transient ischemic attack (TIA), and cerebral infarction without residual deficits; Z66 Do not resuscitate; Z79.02 Long term (current) use of antithrombotics/antiplatelets
CPT/HCPCS: 36415; 71045; 72170; 72192; 73502; 80048; 80053; 85025; 85027; 85610; 86850; 86900; 86901; 93005; 94762; 96374; 97116; 97162; 97166; 97530; 97535; 99284; C1776; C9290; J0136; J0171; J0690; J1170; J1650; J2270; J2405; J2704; J3010